=== PATIENT | female | born 1970 | race Caucasian/White ===

== ENCOUNTER → 2016-05-05 | Outpatient (CLI) | payer BC, OTHER ==
[2016-01-21 08:48] VITALS: BP 121/78
[~2016-05-05] MED LIST: ACET325T21 PO; ALPR0.5T PO; CELE200C PO; CONTRAST GIVEN MC PRN; DULO30CA43 PO; DULO60CA6 PO; ESTR0.5T PO; FURO-69 PO; FURO20TA3 PO; GUAI5LIQ PO; HYDR-2666 PO; HYDR-963 PO; HYDR1TAB12 PO; IOHEXOL 240 MG/ML 50ML VIAL. PO ONE; IOHEXOL 300 MG/ML 75 ML VIAL IV ONE; LIRA0.6P SQ; METF10002 PO; METH-37 PO; MOME13HF IH; NAPR500T PO; OMEG500C3 PO; OMEP20CA5 PO; OXYC-250 PO; OXYC-323 PO; PHEN-318 PO; PROAIR HFA8.5 GM INH; PROG200C7 PO; THYR30TA PO; [UNRECOGNIZED DRUG - CODE] PO
[2016-05-05 09:14] LABS: CREATININE 0.6 mg/dL (0.6-1.0); GFR 109.1
--- NOTE | 2016-05-05 10:59 | RAD ---
EXAM: CT abdomen/pelvis with contrast. HISTORY: Right upper quadrant pain. TECHNIQUE: Computed tomography of the abdomen and pelvis was performed after the intravenous administration of 75 mL Omnipaque 300. COMPARISON: 01/02/2016. FINDINGS: Lung windows through the visualized portions of the bases reveal mild atelectasis. Bone windows reveal no suspicious lesions. A 1 cm mildly hypoattenuating focus within the left hepatic lobe on image 15 was not clearly seen previously. This may be a region of focal fatty infiltration but this is unclear. The gallbladder is surgically absent. The pancreas, adrenal glands, spleen and kidneys are unremarkable. There are no pathologically enlarged lymph nodes. The appendix is not inflamed. There is no obstruction. There are surgical clips along the left adnexa. Soft tissues a within the subcutaneous fat of the lower anterior abdominal wall may reflect subcutaneous injections. IMPRESSION: 1. A focus of mild hypoattenuation within the left hepatic lobe was not seen previously. This is most likely a region of mild focal fatty infiltration. MRI can further characterize if there is persistent concern. A benign lesion is strongly favored in the absence of known malignancy. 2. Status post cholecystectomy. No biliary dilatation. *One or more of the following individualized dose reduction techniques were utilized for this examination: 1. Automated exposure control. 2. Adjustment of the mA and/or kV according to patient size. 3. Use of iterative reconstruction technique.
== END | disposition home or self-care (01) ==
LOC: CT 08:47
PROVIDERS: ATTEND Surgery
DX: R10.9 Unspecified abdominal pain (principal)
CPT/HCPCS: 36415; 74177; 82565; Q9966; Q9967

== ENCOUNTER → 2016-06-02 | Outpatient (CLI) | payer BC, OTHER ==
[2016-01-21 08:48] VITALS: BP 121/78
[~2016-06-02] MED LIST changes: +BUPIVACAINE MPF 0.25% 10 ML VIAL. ONE; -CONTRAST GIVEN MC PRN; -IOHEXOL 240 MG/ML 50ML VIAL. PO ONE; -IOHEXOL 300 MG/ML 75 ML VIAL IV ONE; +methylPREDNISolone ACETATE 40 MG/ML VIAL. ONE
--- NOTE | 2016-06-03 02:00 | PAIN ---
DATE OF SERVICE: 06/02/2016 INITIAL CONSULTATION FOR PAIN CLINIC CHIEF COMPLAINT: Left lower quadrant abdominal pain. HISTORY OF PRESENT ILLNESS: This is a 45-year-old female who presents with history of pain in the left lower quadrant after an emergency strangulated hernia repair by her report in 11/2015. The patient had an abrupt occurrence of left lower abdomen or inguinal hernia, which was strangulated with loop of bowel and had resection and repair later that day in 11/2015. The patient reports that since that time, pain was initially better, but now has been getting worse, especially since 04/2016. It hurts to the touch in left lower quadrant and groin. The patient reports the pain was never completely gone, but it was much better after the surgery. The patient reports she is on her feet all her working day, this exacerbates the pain significantly as well as standing and changing positions from standing to sitting and walking and feels better with lying down. It does not awaken her from sleep, but gets much worse with constipation. The patient reports pain in the left lower quadrant, also radiating to the groin into the left medial thigh up in the very superior aspect on the left side only. is very bad. The patient reports it is throbbing, sharp, constant, aching. She has tried ibuprofen as well as Tylenol, neither one is helping very much with the pain, has not had any other therapies or any other treatments at this time. The patient reports disability rate from 0-10, 10 being the worst, 6 with family and home responsibilities, social activity, and occupation as well life support activities, 8 with recreation and sexual behavior and 5 with self-care. PAST MEDICAL HISTORY: Significant for hypertension, type 2 diabetes, hypothyroidism, arthritis, dizziness and headaches. PREVIOUS SURGERY: Includes laparoscopic cholecystectomy, hysterectomy, tonsillectomy and the recent hernia repair in 11/2015. Also, history of asthma. CURRENT MEDICATIONS: Documented on the patient's chart. FAMILY HISTORY: Significant for heart disease, diabetes, cancers lung and stomach, seizure and asthma. 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 REVIEW OF SYSTEMS: The patient's review of systems is positive for those items mentioned in history of present illness. All systems reviewed and otherwise negative. It is complete, full and well documented on the patient's chart. PHYSICAL EXAMINATION: VITAL SIGNS: Today, the patient's blood pressure 128/88, pulse 90, respirations 18, temperature 98.2 degrees Fahrenheit, height is 5 feet 3 inches, weight 196 pounds. GENERAL: The patient is awake, alert, oriented, appropriate, very pleasant demeanor. HEENT: Head shows normocephalic, atraumatic. Extraocular movements are intact and symmetrical. Oral cavity shows mucous membranes moist and pink. Dentition is intact. NECK: Shows anterior throat supple without palpable lymphadenopathy noted. Swallow reflex is symmetrical. Neck shows full rotational motion of the cervical spine without difficulty or tenderness. CHEST: Shows normal on inspection. Breath sounds are clear to auscultation bilaterally. HEART: Shows S1 and S2 clear. No murmurs auscultated. ABDOMEN: Soft, well-healed surgical scars noted just left of midline in the hypogastric region below the umbilicus in a sagittal fashion. There is moderate tenderness with palpation in the lower left quadrant of the abdomen not or near the surgical scar, but to the left of this in the low abdominal region as well as into the groin with significant pain over the inguinal region, but the superior aspect of the inguinal region on the left side. There is easily palpable mesh, which is more firm in this region of lower left quadrant and upper left groin region as well. Right side is nontender to palpation. Bowel sounds are present in all 4 quadrants. No rebound is demonstrated. No specific guarding demonstrated. The patient's back shows spine grossly in the midline. Normal appearing thoracic kyphosis and lumbar lordotic curvature. Lumbar paraspinous musculature shows symmetrical inspection. On palpation, actually has some moderate tenderness in the low lumbar distribution bilaterally, which is diffuse without radiation. IMPRESSION: 1. This is a 45-year-old female with left lower quadrant and inguinal pain, status post left-sided hernia repair in 11/2015 with significant postoperative pain. 2. Type 2 diabetes. 3. Hypertension. 4. Arthritis. PLAN: Options were discussed with the patient including conservative medical management, physical therapy, interventional techniques and she would like to pursue interventional techniques. We discussed a left-sided ilioinguinal nerve block to see if this may afford some relief to the area of pain after the hernia repair. The patient is interested and would like to proceed with this. Risks were then discussed including, but not limited to bleeding, infection, possibility of intravascular injection sequelae, spread of local anesthetic and numbness, side effects of steroid medication as well as poor results regarding pain control. The patient understands and wishes to proceed. The patient will return to clinic in approximately 2 weeks for followup, was counseled on return appointment, activity level and side effects to be aware of. DIAGNOSES: Abdominal pain, left lower quadrant post-herniorrhaphy. PROCEDURE: Left ilioinguinal nerve block using local anesthetic under sterile prep and drape. Medication injected is total of 5 mL 0.25% bupivacaine plus 40 mg Depo-Medrol with negative aspiration. CONDITION AT DISCHARGE: Stable. The patient tolerated the procedure well, had no complications. BRANDY WESTBROOK MD DR: PEARL/olegario JOB#: [id number] / [id number]
== END | disposition home or self-care (01) ==
LOC: PNCL 10:54
PROVIDERS: ATTEND Anesthesiology
DX: G89.18 Other acute postprocedural pain (principal); E11.9 Type 2 diabetes mellitus without complications; I10 Essential (primary) hypertension; M19.90 Unspecified osteoarthritis, unspecified site; E03.9 Hypothyroidism, unspecified; J45.909 Unspecified asthma, uncomplicated; F41.9 Anxiety disorder, unspecified; Z90.49 Acquired absence of other specified parts of digestive tract; Z90.710 Acquired absence of both cervix and uterus; Z72.89 Other problems related to lifestyle
CPT/HCPCS: 64425; J1030; J3490

== ENCOUNTER → 2016-06-16 | Outpatient (CLI) | payer BC, OTHER ==
[2016-01-21 08:48] VITALS: BP 121/78
[~2016-06-16] MED LIST changes: -BUPIVACAINE MPF 0.25% 10 ML VIAL. ONE; +BUPIVACAINE MPF 0.5% 30 ML VIAL. ONE; +LISI10TA2 PO
--- NOTE | 2016-06-17 00:23 | PAIN ---
DATE OF SERVICE: 06/16/2016 PROGRESS NOTE FOR PAIN CLINIC DIAGNOSES: Abdominal left lower quadrant pain, status post herniorrhaphy pain. HISTORY OF PRESENT ILLNESS: The patient is a 45-year-old female who returns for followup status post left ilioinguinal nerve block on 06/02/2016. The patient reports about 50% improvement with pain in the left groin and left lower quadrant of the abdomen. The patient still has some significant pain though, however, with walking, standing and changing positions. It is aching, sharp and dull, is becoming more constant since the injection. The patient reports anywhere from a 5-7 on a scale 10, currently a 5, again worse with being on her feet, walking, standing, changing positions. The patient reports no new motor or sensory deficits, no new changes, but still significant pain is noted. PHYSICAL EXAMINATION: VITAL SIGNS: The patient's blood pressure 121/90, pulse is 103, respirations 18, temperature 98.5 degrees Fahrenheit. Height is 5 feet 3 inches, weight is 193 pounds. GENERAL: The patient is awake, alert, oriented, appropriate, very pleasant demeanor. HEENT: Head shows normocephalic, atraumatic. Extraocular movements are intact, symmetrical. Oral cavity, mucous membranes are moist and pink. Dentition is intact. NECK: Shows anterior throat supple. Swallow reflex is symmetrical. Neck shows full rotational motion of the cervical spine without difficulty or tenderness. CHEST: Shows normal on inspection. Breath sounds are clear to auscultation bilaterally. HEART: Shows S1 and S2 clear. No murmurs auscultated. ABDOMEN: Shows obese, but soft, with some tenderness in the left lower quadrant inferiorly on the lateral aspect of the hypoumbilical surgical scar in the midline with some palpable area of probable mesh suturing with significant tenderness in the left lower quadrant area. Also, some tenderness in the left groin, with deep palpation some radiation into the medial thigh on the left side. No recurrent hernias were palpated. No other masses or other rebound or guarding demonstrated. Options were discussed with the patient and the patient's old chart was reviewed as her current medication regimen updated. Current review of systems updated today as well. We will proceed with a left ilioinguinal nerve block as the second in this series. Risks were again discussed including, but not limited to bleeding, infection, possibility of intravascular injection sequelae, spread of local anesthetic and numbness, side effects of steroid medications and poor results regarding pain control. The patient understands and wishes to proceed. The patient will return to clinic in approximately 2 weeks for followup, was counseled on return appointment, activity level, and side effects to be aware of. DIAGNOSIS: Left lower quadrant abdominal pain, post-herniorrhaphy. PROCEDURE: Left ilioinguinal nerve block using local anesthetic under sterile prep and drape. Medication injected is a total of 40 mg of Depo-Medrol plus 5 mL of 0.5% bupivacaine after negative aspiration. CONDITION AT DISCHARGE: Stable. The patient tolerated the procedure well, had no complications. BRANDY WESTBROOK MD DR: PEARL/olegario JOB#: [id number] / [id number]
== END | disposition home or self-care (01) ==
LOC: PNCL 09:45
PROVIDERS: ATTEND Anesthesiology
DX: G89.18 Other acute postprocedural pain (principal); J45.909 Unspecified asthma, uncomplicated; E66.9 Obesity, unspecified; M19.90 Unspecified osteoarthritis, unspecified site; E11.9 Type 2 diabetes mellitus without complications; E03.9 Hypothyroidism, unspecified; F41.9 Anxiety disorder, unspecified; Z90.49 Acquired absence of other specified parts of digestive tract; Z90.710 Acquired absence of both cervix and uterus; Z98.51 Tubal ligation status
CPT/HCPCS: 64425; J1030; J3490

== ENCOUNTER → 2016-06-30 | Outpatient (CLI) | payer BC ==
[2016-01-21 08:48] VITALS: BP 121/78
[~2016-06-30] MED LIST changes: +METF-620 PO; -METF10002 PO
--- NOTE | 2016-07-01 00:24 | PAIN ---
DATE OF SERVICE: 06/30/2016 DIAGNOSES: Abdominal pain with left lower quadrant pain post herniorrhaphy. HISTORY OF PRESENT ILLNESS: The patient is a 45-year-old female who returns for followup status post left ilioinguinal nerve block x 2. The patient reports about 30% improvement overall and feels that the first injection helped better than the second injection. The patient reports no new motor or sensory deficits; however, rather complains of still significant pain in the left lower quadrant and in the left lower abdomen and somewhat close to the incisional area of the previous hernia repair. The patient reports anywhere from a 5-9 on a scale of 10, aching, sharp, constant pain that sometimes is unbearable to touch over the left lower quadrant as well. The patient reports no new motor or sensory deficits, no new bowel or bladder incontinence or other complaints. PHYSICAL EXAMINATION: VITAL SIGNS: Today, the patient's blood pressure is 108/71, pulse 94, respirations are 16, temperature 98.3 degrees Fahrenheit, weight is 194 pounds. GENERAL: The patient is awake, alert, oriented, appropriate, very pleasant demeanor. HEENT: Shows normocephalic, atraumatic. Extraocular movements are intact, symmetrical. Oral cavity, mucous membranes are moist and pink. Dentition is intact. NECK: Shows anterior throat supple without palpable lymphadenopathy noted. Swallow reflex is symmetrical. CHEST: Shows normal on inspection. Breath sounds clear to auscultation bilaterally. HEART: Shows S1 and S2 clear. No murmurs auscultated. ABDOMEN: Obese, soft, nontender, nondistended. BACK: Shows well-healed surgical scars in the ____ umbilical region in the midline. With palpation in the left lower quadrant and the inguinal region, there is some moderate tenderness with palpation, even to light touch over the skin of the left lower quadrant and extending medially to the hypogastric region on the left side only. No reproduction of pain is elicited with palpation over the anterior superior iliac spine or just inferior medial to this without radiation. Options were discussed with the patient and the patient's old chart was reviewed as her current medication regimen updated. Current review of systems updated to date as well. We will proceed with a third in a series of left ilioinguinal nerve block. Risks were again discussed including, but not limited to bleeding, infection, possibility of intravascular injection sequelae, spread of local anesthetic and numbness, side effects of steroid medication as well as poor results regarding pain control. The patient understands and wishes to proceed. The patient will return to clinic in approximately 2 weeks for followup. She was counseled on return appointment, activity level and side effects to be aware of. DIAGNOSIS: Left lower quadrant abdominal pain post-herniorrhaphy pain. PROCEDURES: Left ilioinguinal nerve block using local anesthetic under sterile prep and drape. MEDICATION INJECTED: Is a total of 40 mg of Depo-Medrol plus total of 5 mL of 0.5% bupivacaine after negative aspiration. CONDITION AT DISCHARGE: Stable. The patient tolerated procedure well, had no complications. BRANDY WESTBROOK MD DR: PEARL/nts JOB#: [id number] / [id number]
== END | disposition home or self-care (01) ==
LOC: PNCL 09:38
PROVIDERS: ATTEND Anesthesiology
DX: G89.18 Other acute postprocedural pain (principal); J45.909 Unspecified asthma, uncomplicated; E66.9 Obesity, unspecified; F41.9 Anxiety disorder, unspecified; E11.9 Type 2 diabetes mellitus without complications; E03.9 Hypothyroidism, unspecified; M19.90 Unspecified osteoarthritis, unspecified site; Z90.49 Acquired absence of other specified parts of digestive tract; Z98.51 Tubal ligation status; Z90.710 Acquired absence of both cervix and uterus; Z90.721 Acquired absence of ovaries, unilateral
CPT/HCPCS: 64425; J1030; J3490

== ENCOUNTER → 2016-08-11 | Outpatient (CLI) | payer BC ==
[2016-01-21 08:48] VITALS: BP 121/78
[~2016-08-11] MED LIST changes: -HYDR-2666 PO; +HYDR-2758 PO; +HYDR-2934 PO; -OXYC-250 PO; +OXYC-328 PO; +PROG200C15 PO; -PROG200C7 PO; -[UNRECOGNIZED DRUG - CODE] PO
--- NOTE | 2016-08-12 05:32 | PAIN ---
DATE OF SERVICE: 08/11/2016 PROGRESS NOTE FOR PAIN CLINIC DIAGNOSIS: Left lower quadrant abdominal pain, post-herniorrhaphy. HISTORY OF PRESENT ILLNESS: The patient is a 45-year-old female who returns for followup status post left ilioinguinal nerve block injections x 3. The patient reports she was doing better about 40-50%, but with increased activity over the past week, lifting some boxes rather heavy and strained her abdomen, the patient reports at that time the pain returned fairly quickly within a day in the left lower quadrant and the medial aspect of the left lower quadrant, ____. The patient reports it is constant and stabbing, now aching and sharp, rates as 9 on a scale of 10 and is worse with activity, and a 5 on a scale 10 currently. The patient reports it wakes her from sleep at night when she lays on her left side. Otherwise, was doing fairly well, but the pain is returning significantly. The patient is taking ibuprofen, which does decrease the pain now to about a 20% level as well. The patient reports no new motor or sensory deficits, no new bowel or bladder incontinence or other complaints. PHYSICAL EXAMINATION: VITAL SIGNS: Today, the patient's blood pressure is 122/89, pulse 90, respirations are 18, temperature is 98.3 degrees Fahrenheit, height is 5 feet 3 inches and weight is 195 pounds. GENERAL: The patient is awake, alert, oriented, appropriate, very pleasant demeanor. HEENT: Head shows normocephalic, atraumatic. Extraocular movements are intact and symmetrical. Oral cavity, mucous membranes are moist and pink. Dentition is intact. NECK: Shows anterior throat supple without palpable lymphadenopathy noted. Swallow reflex is symmetrical. CHEST: Shows normal on inspection. Breath sounds are clear to auscultation bilaterally. HEART: Shows S1 and S2 clear. ABDOMEN: Soft. She has some tenderness in the left lower quadrant with diffuse palpation near the surgical scar closer to the midline, but also into the left medial lower quadrant as well as lateral lower quadrant diffusely without radiation of pain or other abnormalities. No masses are palpated. No organomegaly, no rebound or guarding demonstrated. Options were discussed with the patient and the patient's old chart was reviewed as her current medication regimen and updated. Current review of systems updated today as well. We will proceed with a left ilioinguinal nerve block. Risks were again discussed including, but not limited to bleeding, infection, possibility of intravascular injection sequelae, spread of local anesthetic and numbness, side effects of steroid medication and poor results regarding pain control. The patient understands and wishes to proceed. The patient will return to clinic in approximately 2 weeks for followup. She was counseled as to return appointment, activity level and side effects to be aware of. DIAGNOSIS: Left lower quadrant abdominal pain, post-herniorrhaphy pain. PROCEDURE: Left ilioinguinal nerve block using local anesthetic under sterile prep and drape. MEDICATIONS INJECTED: Total of 5 mL of 0.5% bupivacaine and 40 mg of Depo-Medrol after negative aspiration. CONDITION AT DISCHARGE: Stable. The patient tolerated the procedure well, had no complications. BRANDY WESTBROOK MD DR: PEARL/olegario JOB#: [id number] / [id number]
== END | disposition home or self-care (01) ==
LOC: PNCL 14:09
PROVIDERS: ATTEND Anesthesiology
DX: G89.18 Other acute postprocedural pain (principal); J45.909 Unspecified asthma, uncomplicated; E66.9 Obesity, unspecified; M19.90 Unspecified osteoarthritis, unspecified site; E11.9 Type 2 diabetes mellitus without complications; F41.9 Anxiety disorder, unspecified; E03.9 Hypothyroidism, unspecified; Z90.49 Acquired absence of other specified parts of digestive tract; Z98.51 Tubal ligation status; Z86.39 Personal history of other endocrine, nutritional and metabolic disease; Z90.710 Acquired absence of both cervix and uterus; Z91.012 Allergy to eggs; Z91.011 Allergy to milk products; Z91.018 Allergy to other foods; Z91.048 Other nonmedicinal substance allergy status
CPT/HCPCS: 64425; J1030; J3490

== ENCOUNTER → 2016-08-19 | Outpatient (CLI) | payer BC ==
[2016-01-21 08:48] VITALS: BP 121/78
[~2016-08-19] MED LIST changes: -BUPIVACAINE MPF 0.5% 30 ML VIAL. ONE; +GADOBUTROL 10 MMOL/10 ML VIAL IV ONE; -methylPREDNISolone ACETATE 40 MG/ML VIAL. ONE
--- NOTE | 2016-08-19 13:40 | KCIC ---
MRI Lumbar Spine without and with contrast History: Chronic neck and back pain, low back pain for 4 years Technique: Multiplanar, multi sequential pre-and postcontrast MR imaging was performed of the lumbar spine. Contrast: 8 cc Gadavist Comparison: None Findings: Lumbar vertebral body stature and alignment are maintained. There is moderate degenerative disease at L2-3 and to a lesser degree L5-S1. Conus terminates at T12-L1. There is no nodular enhancement of the conus or cauda equina, no enhancement in the intervertebral disc spaces. There are posterior and anterior annular tears at L5-S1 and posterior annular tear at L2-3. There is no significant marrow edema. L2-L3: There is minimal disc osteophyte complex and bulge. There is mild prominence of posterior epidural fat. Spinal canal and the neural foramina are adequate. L3-L4: There is prominence of the posterior epidural fat. There is mild buckling of the ligamentum flavum and [id number] facet hypertrophic change. There is mild attenuation of the thecal sac mostly from posterior epidural lipomatosis. Neural foramina are adequate. L4-L5: There is mild prominence of posterior epidural fat. There is mild buckling of the ligamentum flavum and facet degenerative change. There is overall mild attenuation of the thecal sac primary from epidural lipomatosis. Neural foramina are adequate. L5-S1: There is mild buckling of the ligamentum flavum and [id number] facet hypertrophic change. Neural foramina and spinal canal are adequate. There is negligible posterior protrusion without neural impingement. Impression: 1. There is moderate degenerative disc disease L2-3 and to lesser degree L5-S1. There is no significant lumbar spinal stenosis, mild attenuation of the thecal sac due to epidural lipomatosis greatest at L3-4 and L4-5. There is no significant lumbar neural foramina compromise. Electronically signed by: Edwin Lawrence MD (08/19/2016 1:37 PM)
--- NOTE | 2016-08-19 14:05 | KCIC ---
MRI Cervical Spine with and without contrast History: Chronic neck and back pain, headaches, neck and shoulder pain for 3 weeks into the arms Technique: Sagittal T1, sagittal T2, sagittal STIR, axial T1, and axial T2-weighted images were acquired of the cervical spine. Post contrast sagittal and axial T1-weighted images were also acquired. Contrast: 8 cc Gadavist Comparison: None available Findings: There is some motion degradation. Cervical cord caliber is within normal limits, no convincing or defined signal abnormality allowing for motion artifact. There is no enhancement of the cervical cord and in the intervertebral disc spaces. There is mild reversal of the lordotic curvature centered about C5-6. There is moderate degenerative disc disease C5-C6 and to a lesser degree at C4-5 and C6-7. There is minimal grade 1 anterior spondylolisthesis C2-3 and to lesser degree at C3-4. There is no significant abnormality of the cervical medullary junction. C2-C3: Spinal canal and neural foramina are adequate. There is mild right facet hypertrophic change. C3-C4: There is a negligible disc osteophyte complex. There is mild right and moderate to severe left facet degenerative change. Spinal canal is adequate. There is minimal narrowing of the right neural foramen, left neural foramen adequate. C4-C5: There is minimal disc osteophyte complex and bulge. Central canal is borderline 10 mm. There is uncovertebral degenerative change. There is mild facet degenerative change greater on the left. Neural foramina are overall adequate. C5-C6: There is disc osteophyte complex and bulge with indentation upon the ventral thecal sac greater in the right lateral recess. Central canal is narrowed to 8 mm, somewhat greater degree of right lateral recess stenosis. There is uncovertebral degenerative change bilaterally, also facet degenerative change. There is moderate to severe, left greater than right neural foramina compromise. C6-C7: There is disc osteophyte complex and bulge with indentation upon the ventral thecal sac, central canal minimally narrowed to approximately 8 mm. There is uncovertebral degenerative change bilaterally. There is moderate to severe, left greater than right neural foramina compromise. C7-T1: Spinal canal and the neural foramina are adequate. Impression: 1. There is spinal stenosis on the order of 8 mm at C5-C6 and C6-7. 2. There is more significant narrowing of the neural foramina bilaterally at C5-C6 and C6-7. 3. There is moderate degenerative disc disease at C5-C6, talus. C4-5 and C6-7. 4. There is multilevel facet degenerative change. Electronically signed by: Edwin Lawrence MD (08/19/2016 2:02 PM)
== END | disposition home or self-care (01) ==
LOC: KCIC MRI 11:30
PROVIDERS: ATTEND Family Medicine
DX: M50.322 Other cervical disc degeneration at C5-C6 level (principal); M48.02 Spinal stenosis, cervical region; M25.78 Osteophyte, vertebrae
CPT/HCPCS: 72156; 72158; 82565; A9585

== ENCOUNTER → 2016-08-25 | Outpatient (CLI) | payer BC ==
[2016-01-21 08:48] VITALS: BP 121/78
[~2016-08-25] MED LIST changes: -GADOBUTROL 10 MMOL/10 ML VIAL IV ONE; +IOHEXOL 180 MG/ML 10 ML VIAL. ONE; +methylPREDNISolone ACETATE 40 MG/ML VIAL. ONE; +methylPREDNISolone ACETATE 80 MG/ML VIAL. ONE
== END | disposition home or self-care (01) ==
LOC: PNCL 12:56
PROVIDERS: ATTEND Anesthesiology
DX: M50.30 Other cervical disc degeneration, unspecified cervical region (principal); Z90.49 Acquired absence of other specified parts of digestive tract; E66.9 Obesity, unspecified; Z68.41 Body mass index [BMI] 40.0-44.9, adult; K21.9 Gastro-esophageal reflux disease without esophagitis; Z98.51 Tubal ligation status; M19.90 Unspecified osteoarthritis, unspecified site; Z87.39 Personal history of other diseases of the musculoskeletal system and connective tissue; F41.9 Anxiety disorder, unspecified; Z90.710 Acquired absence of both cervix and uterus; E11.9 Type 2 diabetes mellitus without complications; Z86.39 Personal history of other endocrine, nutritional and metabolic disease
CPT/HCPCS: 62321; J1030; J1040

== ENCOUNTER → 2016-09-08 | Outpatient (CLI) | payer BC ==
[2016-01-21 08:48] VITALS: BP 121/78
== END | disposition home or self-care (01) ==
LOC: PNCL 13:30
PROVIDERS: ATTEND Anesthesiology
DX: M50.11 Cervical disc disorder with radiculopathy, high cervical region (principal); J45.909 Unspecified asthma, uncomplicated; E66.9 Obesity, unspecified; Z68.41 Body mass index [BMI] 40.0-44.9, adult; K21.9 Gastro-esophageal reflux disease without esophagitis; M19.90 Unspecified osteoarthritis, unspecified site; E11.9 Type 2 diabetes mellitus without complications; E03.9 Hypothyroidism, unspecified; F41.9 Anxiety disorder, unspecified; Z90.49 Acquired absence of other specified parts of digestive tract; Z98.51 Tubal ligation status; Z90.710 Acquired absence of both cervix and uterus; Z91.012 Allergy to eggs; Z91.011 Allergy to milk products; Z91.048 Other nonmedicinal substance allergy status
CPT/HCPCS: 62321; J1030; J1040

== ENCOUNTER → 2016-09-22 | Outpatient (CLI) | payer BC ==
[2016-01-21 08:48] VITALS: BP 121/78
--- NOTE | 2016-09-23 06:45 | PAIN ---
DATE OF SERVICE: 09/22/2016 PROGRESS NOTE FOR PAIN CLINIC DIAGNOSES: 1. Abdominal pain, left lower quadrant, post herniorrhaphy. 2. Cervical radiculopathy with cervical degenerative disk disease. 3. Lumbar radiculopathy with lumbar degenerative disk disease. HISTORY OF PRESENT ILLNESS: The patient is a 45-year-old female who returns for followup status post cervical epidural steroid injection x 2 as well as left ilioinguinal nerve block x 4. The patient reports that her abdomen is doing much better about 75-80% improvement. Neck is about 50% improved. It is ____ pain in the base of the neck and left shoulder, also some persistent radiating pain in the left upper extremity, mostly in the posterior lateral aspect and medial aspect of the forearm and upper arm into the hand and fingers, mostly in the fourth and fifth fingers on the left side. It is a throbbing, constant, sharp pain, rates as a shooting, stabbing, radiating severe at times, unbearable at times, anywhere from 6 to 9 on a scale of 10 and is currently a 6 on the scale today. The patient reports no loss of motor function, but significant pain with still moving her arm overhead, doing repetitive motions with left upper extremity, lifting or other activities with the upper extremity. The patient reports also some low back pain with some radiation to bilateral lower extremities, which is not as severe as the neck and shoulders, but still significant pain in the base of the spine and then into the posterior lateral gluteus, lateral and anterior thighs, again worse with walking, standing and changing positions. This awakens her from sleep at night, mostly from the neck and shoulder and the left arm. She has to reposition or take pain medication and then she is able to get back to sleep. PHYSICAL EXAMINATION: VITAL SIGNS: Today, the patient's blood pressure is 128/98, pulse 105, respirations 18, temperature 98.0 degrees Fahrenheit. Height is 5 feet 3 inches, weighs 186 pounds. GENERAL: The patient is awake, alert, oriented, appropriate, very pleasant demeanor. HEENT: Head shows normocephalic, atraumatic. Extraocular movements are intact, symmetrical. Oral cavity: Mucous membranes moist and pink. Dentition is intact. NECK: Shows anterior throat supple without palpable lymphadenopathy noted. Swallow reflex is symmetrical. CHEST: Shows normal with inspection. Breath sounds clear to auscultation bilaterally. HEART: Shows S1 and S2 clear. ABDOMEN: Soft, nontender, nondistended. No palpable organomegaly is noted. There is a well healed surgical scar noted in the midline and to the left of midline in the lower left quadrant. Some very mild tenderness with palpation over this region and over the ilioinguinal distribution, but only very mildly so without radiation. BACK: The patient's back shows spine grossly midline. Cervical spine shows full rotational motion with extension and flexion without significant difficulty. Paraspinous musculature is symmetrical on inspection and palpation shows some only very mild to minimal tenderness with palpation in the paraspinous musculature itself. Good extension and flexion as well. Lower back shows moderate tenderness with palpation, but symmetrical paraspinous musculature in the lumbar distribution without significant radiation or pain reported with palpation only very mild in the paraspinous muscles. EXTREMITIES: Upper extremities show deep tendon reflexes at 2+ in the biceps and triceps tendons. Lower extremities show 2+ in the patellar and tendo calcaneus tendons. Motor exam is strong with 5/5 heading maker strength, biceps and triceps flexion equal as well as quadriceps and hamstring flexion and dorsiflexion, extension is 5/5 and equal as well. Peripheral pulses are 2+ radial, 1+ posterior tibial and no edema is noted in any of the extremities. Options were discussed with the patient. At this time, the patient's old chart was reviewed as her current medication regimen updated. Current review of systems updated today as well. We will proceed with a third cervical epidural steroid injection in this series with fluoroscopic guidance. Risks were again discussed including, but not limited to bleeding, infection, possibility of epidural hematoma and subsequent neurologic compromise, dural puncture, headaches, spinal cord and/or nerve damage, side effects of steroid medication and poor results regarding pain control. The patient understands and wishes to proceed. The patient will return to clinic in approximately 2 weeks for followup, was counseled on return appointment, activity level and side effects to be aware of. DIAGNOSIS: Cervical radiculopathy with cervical degenerative disk disease. PROCEDURE: Cervical epidural steroid injection with C-arm fluoroscopic guidance and sterile prep and drape using local anesthetic. MEDICATION INJECTED: 120 mg of Depo-Medrol plus 5 mL of preservative-free normal saline and 2mL of Isovue for contrast. CONDITION AT DISCHARGE: Stable. The patient tolerated the procedure well and had no complications. BRANDY WESTBROOK MD DR: PEARL/olegario JOB#: [id number] / [id number]
== END | disposition home or self-care (01) ==
LOC: PNCL 11:42
PROVIDERS: ATTEND Anesthesiology
DX: M50.10 Cervical disc disorder with radiculopathy, unspecified cervical region (principal); M51.16 Intervertebral disc disorders with radiculopathy, lumbar region; J45.909 Unspecified asthma, uncomplicated; E66.9 Obesity, unspecified; Z68.41 Body mass index [BMI] 40.0-44.9, adult; K21.9 Gastro-esophageal reflux disease without esophagitis; M19.90 Unspecified osteoarthritis, unspecified site; E11.9 Type 2 diabetes mellitus without complications; E03.9 Hypothyroidism, unspecified; F41.9 Anxiety disorder, unspecified; F17.200 Nicotine dependence, unspecified, uncomplicated; Z90.49 Acquired absence of other specified parts of digestive tract; Z86.39 Personal history of other endocrine, nutritional and metabolic disease; Z90.710 Acquired absence of both cervix and uterus; Z98.51 Tubal ligation status; Z91.012 Allergy to eggs; Z91.011 Allergy to milk products; Z91.010 Allergy to peanuts
CPT/HCPCS: 62321; J1030; J1040

== ENCOUNTER 2016-10-08 14:22 | Emergency (ER) | payer BC ==
[~2016-10-08] VITALS: Ht 160 cm; Wt 80.7 kg
[~2016-10-08 14:22] MED LIST changes: -IOHEXOL 180 MG/ML 10 ML VIAL. ONE; -methylPREDNISolone ACETATE 40 MG/ML VIAL. ONE; -methylPREDNISolone ACETATE 80 MG/ML VIAL. ONE
[2016-10-08 14:49] VITALS: BP 120/81
--- NOTE | 2016-10-08 14:57 | PHYS DOC ---
Past Medical History Past Medical History: Arthritis, Asthma, Diabetes-Type II Additional Past Medical Histor: back pain Past Surgical History: Cholecystectomy, Hysterectomy, Tonsillectomy, Other Additional Past Surgical Histo: BLADDER Alcohol Use: Occasionally Drug Use: None Adult General Chief Complaint Chief Complaint: ANIMAL BITE [facility] HPI Patient is a 45 year old female presents to the emergency department stating that she was bit by her own dog on Wednesday. She has a puncture wound noted in between her third and fourth metacarpal area. Patient does have bruising noted and no swelling noted at this time. Patient has increased discomfort with closing her hand. She denies any fever, chills or any nausea vomiting. She states that the dog's immunizations and herself are up-to-date. Review of Systems Review of Systems Constitutional: Denies fever or chills [] Eyes: Denies change in visual acuity, redness, or eye pain [] HENT: Denies nasal congestion or sore throat [] Respiratory: Denies cough or shortness of breath [] Cardiovascular: No additional information not addressed in HPI [] GI: Denies abdominal pain, nausea, vomiting, bloody stools or diarrhea [] : Denies dysuria or hematuria [] Musculoskeletal: Denies back pain or joint pain [] Integument: Denies rash or skin lesions. Complaint of one puncture wound to the left hand. Neurologic: Denies headache, focal weakness or sensory changes [] Endocrine: Denies polyuria or polydipsia [] Allergies Allergies Allergies Coded Allergies Type Severity Reaction Last Updated Verified Egg Derived Allergy Intermediate Hives 01/21/16 Yes adhesive Allergy Intermediate TAPE 01/21/16 Yes gluten Allergy Intermediate 01/21/16 Yes milk Adverse Reaction Intermediate 06/30/16 Yes Physical Exam Physical Exam Constitutional: Well developed, well nourished, no acute distress, non-toxic appearance. [] HENT: Normocephalic, atraumatic, bilateral external ears normal, oropharynx moist, no oral exudates, nose normal. [] Eyes: PERRLA, EOMI, conjunctiva normal, no discharge. [] Neck: Normal range of motion, no tenderness, supple, no stridor. [] Cardiovascular:Heart rate regular rhythm Lungs & Thorax: No respiratory distress noted Skin: Warm, dry, no erythema, no rash. Patient with a puncture wound noted between the third and fourth metacarpal area on the left hand. She does have bruising noted minimal swelling noted. 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 Patient does have tenderness over the metacarpal areas. Back: No tenderness Extremities: No tenderness, no cyanosis, no clubbing, ROM intact, no edema. [] Neurologic: Alert and oriented X 3, normal motor function, normal sensory function, no focal deficits noted. [] Psychologic: Affect normal, judgement normal, mood normal. [] Current Patient Data Vital Signs Vital Signs Date Time Temp Pulse Resp B/P (MAP) Pulse Ox O2 Delivery O2 Flow Rate FiO2 10/08/16 14:49 98.2 105 20 97 Room Air 98.2 EKG EKG [] Radiology/Procedures Radiology/Procedures [facility] [address] [place] [address] IMAGING REPORT Signed PATIENT: YARED RICHARD ACCOUNT: [id number] : 1970 LOCATION: ER AGE: 45 SEX: F EXAM STATUS: REG ER ORD. PHYSICIAN: JO-ANN GRIMALDO APRN REASON: pain, bruising from dog bite PROCEDURE: HAND LEFT 3V Indication dog bite 3 days previously persistent pain. AP oblique and lateral views of the left hand were obtained. There is some soft tissue swelling involving the long and ring fingers. There is an oblique fracture at the base of the distal phalanx of the long finger on the ulnar side which is nondisplaced. The fracture is likely recent or acute. IMPRESSION: Mild soft tissue swelling. Nondisplaced fracture distal phalanx of the long finger DICTATED and SIGNED BY: WICHO MANZANO MD DATE: 10/08/16 1523 CC: JO-ANN GRIMALDO APRN; JOSE NAVARRETE MD ~ [] Course & Med Decision Making Course & Med Decision Making Pertinent Labs and Imaging studies reviewed. (See chart for details) X-ray revealed a nondisplaced fracture at the distal phalanx on the third finger , patient will be placed with a aluminum splint. Patient was also handing tenderness at the proximal metacarpal area on the third finger. Patient will be encouraged to follow-up with hand specialist at or at [facility]. Patient will be placed on Augmentin prophylactically as the hand does not appear to be swollen and tender to touch. Patient agrees with discharge instructions treatment regimens and follow-up recommendations. Signs and symptoms to return back to emergency department as been provided. All questions were answered at patient's bedside at this time. [] Dragon Disclaimer Dragon Disclaimer This electronic medical record was generated, in whole or in part, using a voice recognition dictation system. Departure Departure Impression: Primary Impression: Dog bite of left hand Additional Impression: Hand pain, left Disposition: 01 HOME, SELF-CARE Condition: STABLE Referrals: JOSE NAVARRETE MD (PCP) Patient Instructions: Animal Bite, [id number], Hand Injuries, [id number] Additional Instructions: Activity as tolerated. Medications as prescribed. Tylenol or ibuprofen for pain and discomfort. Elevation as much as possible. Keep the puncture wound clean and dry. Clean the site twice over soap and water and apply antibiotic ointment to the area. Follow-up with a hand specialist either at [facility] within the next 3-5 days. Return to the emergency Department for sign symptoms become worse. Scripts Amoxicillin/Potassium Clav (AUGMENTIN 875-125 TABLET) 1 Each Tablet 1 TAB PO BID, #20 TAB Prov: JO-ANN GRIMALDO APRN 10/08/16 Problem Qualifiers JO-ANN GRIMALDO APRN Oct 08, 2016 14:57
--- NOTE | 2016-10-08 15:29 | RAD ---
Indication dog bite 3 days previously persistent pain. AP oblique and lateral views of the left hand were obtained. There is some soft tissue swelling involving the long and ring fingers. There is an oblique fracture at the base of the distal phalanx of the long finger on the ulnar side which is nondisplaced. The fracture is likely recent or acute. IMPRESSION: Mild soft tissue swelling. Nondisplaced fracture distal phalanx of the long finger
[2016-10-08] MEDS ORDERED: AMOX1TAB61 PO (15:53)
== END 2016-10-08 16:00 | disposition home or self-care (01) ==
LOC: ER 14:22
DX: S61.452A Open bite of left hand, initial encounter (principal); M19.90 Unspecified osteoarthritis, unspecified site; J45.909 Unspecified asthma, uncomplicated; E11.9 Type 2 diabetes mellitus without complications; Z90.49 Acquired absence of other specified parts of digestive tract; Z90.710 Acquired absence of both cervix and uterus; Z91.012 Allergy to eggs; Z91.011 Allergy to milk products; Z88.8 Allergy status to other drugs, medicaments and biological substances; Z91.048 Other nonmedicinal substance allergy status; W54.0XXA Bitten by dog, initial encounter; Y93.89 Activity, other specified; Y92.89 Other specified places as the place of occurrence of the external cause; Y99.8 Other external cause status
CPT/HCPCS: 29130; 73130; 99284-25

== ENCOUNTER → 2016-11-16 | Outpatient (CLI) | payer BC ==
[~2016-11-16] MED LIST changes: +AMOX1TAB61 PO
--- NOTE | 2016-11-17 09:06 | KCIC ---
DATE: 11/16/2016 EXAM: MAMMO HUSEYIN SCREENING BILATERAL HISTORY: Screening COMPARISON: One year earlier FINDINGS: Breast Density: HETERO The breast parenchyma Is heterogeneiously dense, which could reduce sensitivity of mammography. Breast parenchyma level C. There has not been a significant change in the appearance of the breasts compared to the previous exam IMPRESSION: Benign findings BI-RADS CATEGORY: 2 BENIGN FINDING(S) RECOMMENDED FOLLOW-UP: 12M 12 MONTH FOLLOW-UP PQRS compliance statement: Patient information was entered into a reminder system with a target due date 11/16/2017 for the next mammogram. Mammography is a sensitive method for finding small breast cancers, but it does not detect them all and is not a substitute for careful clinical examination. A negative mammogram does not negate a clinically suspicious finding and should not result in delay in biopsying a clinically suspicious abnormality. "Our facility is accredited by the [employer] Mammography Program."
== END | disposition home or self-care (01) ==
LOC: KCIC MAMMO 15:46
PROVIDERS: ATTEND Family Medicine
DX: Z12.31 Encounter for screening mammogram for malignant neoplasm of breast (principal)
CPT/HCPCS: 77063; G0202; 77067

== ENCOUNTER 2016-12-07 11:37 | Emergency (ER) | payer BC ==
[2016-12-07 11:50] VITALS: BP 136/93
--- NOTE | 2016-12-07 12:28 | PHYS DOC ---
Past Medical History Past Medical History: Arthritis, Asthma, Diabetes-Type II Additional Past Medical Histor: back pain Past Surgical History: Cholecystectomy, Hysterectomy, Tonsillectomy, Other Additional Past Surgical Histo: BLADDER Alcohol Use: Occasionally Drug Use: None Adult General Chief Complaint Chief Complaint: PAIN CONTROL HPI HPI Patient is a 46 year old female with history of asthma, diabetes type 2, complaining of chronic neck pain. Patient denies any new injuries. Patient states she follows up with Dr. Scott for her chronic neck pain. She states she is scheduled for myelogram on December 27, 2016. She states she called the office today to see if they can do it sooner but they could not get any dates sooner than December 27 2016. She states she came to the ED to be evaluated for her pain. Patient states the pain radiates to bilateral upper extremities. She states Dr. Scott has an RX for her to pick for pain medicine Review of Systems Review of Systems Constitutional: Denies fever or chills [] Eyes: Denies change in visual acuity, redness, or eye pain [] HENT: Denies nasal congestion or sore throat [] Respiratory: Denies cough or shortness of breath [] Cardiovascular: No additional information not addressed in HPI [] GI: Denies abdominal pain, nausea, vomiting, bloody stools or diarrhea [] : Denies dysuria or hematuria [] Musculoskeletal: Chronic neck pain radiating to bilateral upper extremities Integument: Denies rash or skin lesions [] Neurologic: Denies headache, focal weakness or sensory changes [] Current Medications Current Medications Current Medications Medications (Trade) Dose Ordered Sig/[facility] Start Time Stop Time Status Last Admin Dose Admin Diazepam (Valium) 5 mg 1X ONCE 12/07/16 12:30 12/07/16 12:31 Ketorolac Tromethamine (Toradol Im) 60 mg 1X ONCE 12/07/16 12:30 12/07/16 12:31 Morphine Sulfate 5 mg 1X ONCE 12/07/16 12:30 12/07/16 12:31 Allergies Allergies Allergies Coded Allergies Type Severity Reaction Last Updated Verified Egg Derived Allergy Intermediate Hives 01/21/16 Yes adhesive Allergy Intermediate TAPE 01/21/16 Yes gluten Allergy Intermediate 01/21/16 Yes milk Adverse Reaction Intermediate 06/30/16 Yes Physical Exam Physical Exam Constitutional: Well developed, well nourished, no acute distress, non-toxic appearance. [] HENT: Normocephalic, atraumatic, bilateral external ears normal, oropharynx moist, no oral exudates, nose normal. [] Eyes: PERRLA, EOMI, conjunctiva normal, no discharge. [] Neck: Normal range of motion, diffuse paraspinal muscle tenderness to posterior cervical spine, supple, no stridor. [] Cardiovascular:Heart rate regular rhythm, no murmur [] Lungs & Thorax: Bilateral breath sounds clear to auscultation [] Abdomen: Bowel sounds normal, soft, no tenderness, no masses, no pulsatile masses. [] Skin: Warm, dry, no erythema, no rash. [] Back: No tenderness, no CVA tenderness. [] Extremities: No tenderness, no cyanosis, no clubbing, ROM intact, no edema. [] Neurologic: Alert and oriented X 3, normal motor function, normal sensory function, no focal deficits noted. [] Psychologic: Affect normal, judgement normal, mood normal. [] Current Patient Data Vital Signs Vital Signs Date Time Temp Pulse Resp B/P (MAP) Pulse Ox O2 Delivery O2 Flow Rate FiO2 12/07/16 11:50 98.4 98 18 97 Room Air 98.4 EKG EKG [] Radiology/Procedures Radiology/Procedures [] Course & Med Decision Making Course & Med Decision Making Pertinent Labs and Imaging studies reviewed. (See chart for details) Please see history of present illness. Patient is in the ED with chronic neck pain. She is scheduled to do a myelogram on December 27, [address] Scott. She is wanting this done sooner than the date scheduled. Informed patient we do not do myelograms in the ED. She was given pain relief and discharged. She has a prescription for pain medicine at Dr. Scott's office. Dragon Disclaimer Dragon Disclaimer This electronic medical record was generated, in whole or in part, using a voice recognition dictation system. Departure Departure Impression: Primary Impression: Chronic neck pain Additional Impression: Cervical radiculopathy Disposition: 01 HOME, SELF-CARE Condition: STABLE Referrals: JOSE NAVARRETE MD (PCP) ASHIA CSOTT MD call his office for follow up appointment Patient Instructions: Cervical Radiculopathy, [id number] Additional Instructions: You were seen for chronic neck pain radiating to bilateral upper extremities. Please contact your own primary care doctor as well as Dr. Scott for follow- up. Problem Qualifiers CYNTHIA LOVELACE APRN Dec 07, 2016 12:28
[2016-12-07] MEDS ORDERED: MORPHINE SULFATE 10 MG/ML VIAL. IM ONE (12:30)
[2016-12-07] MEDS ORDERED: KETOROLAC 60 MG/2 ML INJ. IM ONE (12:30)
[2016-12-07] MEDS ORDERED: diazePAM 5 MG TABLET PO ONE (12:30)
[2016-12-11] MEDS ORDERED: IBUP-1007 PO (10:11)
[2016-12-11] MEDS ORDERED: [UNRECOGNIZED DRUG - CODE] PO (10:11)
[2016-12-11] MEDS ORDERED: BUPR300T3 PO (10:11)
[2016-12-11] MEDS ORDERED: LEVO150T5 PO (10:11)
[2016-12-11] MEDS ORDERED: DULA0.75 SQ (10:11)
[2016-12-11] MEDS ORDERED: ESTR2TAB PO (10:11)
[2016-12-11] MEDS ORDERED: HYDR-2758 PO (10:11)
[2016-12-11] MEDS ORDERED: OMEP20CA9 PO (10:11)
[2016-12-11] MEDS ORDERED: CHLO500T53 PO (10:13)
[2016-12-11] MEDS ORDERED: METH-37 PO (10:13)
== END 2016-12-07 13:08 | disposition home or self-care (01) ==
LOC: ER 11:37
DX: G89.29 Other chronic pain (principal); M54.12 Radiculopathy, cervical region; M19.90 Unspecified osteoarthritis, unspecified site; J45.909 Unspecified asthma, uncomplicated; E11.9 Type 2 diabetes mellitus without complications; Z90.49 Acquired absence of other specified parts of digestive tract; Z90.710 Acquired absence of both cervix and uterus; Z91.012 Allergy to eggs; Z91.011 Allergy to milk products; Z88.8 Allergy status to other drugs, medicaments and biological substances; Z91.048 Other nonmedicinal substance allergy status
CPT/HCPCS: 96372; 99284; J1885; J2270

== ENCOUNTER → 2016-12-11 | Outpatient (CLI) | payer BC ==
[~2016-12-11] VITALS: Ht 160 cm; Wt 85.7 kg
[~2016-12-11] MED LIST changes: +BUPR300T3 PO; +CHLO500T53 PO; +CONTRAST GIVEN MC PRN; +DULA0.75 SQ; +ESTR2TAB PO; +IBUP-1007 PO; +IOHEXOL 300 MG/ML 10ML VIAL. IJ ONE; +LEVO150T5 PO; +LIDOCAINE 1% / SOD BICARB 8.4% 20 ML VIAL. IJ ONE; +OMEP20CA9 PO; +[UNRECOGNIZED DRUG - CODE] PO
--- NOTE | 2016-12-11 12:02 | RAD ---
Cervical myelogram, 12/11/2016: History: Cervical stenosis-radiculopathy Under local anesthesia, aseptic conditions and fluoroscopic guidance a lumbar puncture was performed at the L2 level utilizing a 25-gauge Debbi spinal needle. Good clear CSF flow was obtained following which 11 cc of Omnipaque 300 was injected into the thecal sac. The spinal needle was then removed and appropriate cervical imaging performed. 2.6 minutes of fluoroscopy time was utilized. 11 fluoroscopic spot images were recorded. The patient tolerated the procedure well and was sent to CT in good condition. The following findings are delineated on the myelogram: 1. In the prone position with the neck extended there was partial obstruction to superior flow of the contrast material at the C5-6 level. 2. There are anterior extradural defects throughout the cervical spine, most prominent at C5-6 and to lesser degree at C4-5 and C6-7. There are also posterior extradural defects at C5-6 and C6-7, producing mild central spinal stenosis at those 2 levels levels. 3. There is poor filling of the nerve root sleeves bilaterally C5-6 and C6-7. CT of the cervical spine-post myelogram, 12/11/2016: Multidetector CT imaging was performed with multiplanar reconstructions produced. The following findings are delineated: 1. At C2-3 there is only minimal posterior annular bulging. There are mild degenerative changes involving the facet joints. The central spinal canal and neural foramina are well preserved. 2. At C3-4 there is minimal posterior annular bulging and mild degenerative change involving the facet joints. The central spinal canal is well-preserved. There is decreased filling of the left nerve root sleeve at this level. 4. At C4-5 there is moderate broad-based posterior disc bulging and marginal spurring. There are mild degenerative changes involving the facet joints. The thecal sac measures 10 mm in AP dimension at the midline. The neural foramina are well maintained. 5. At C5-6 there is moderate disc space narrowing with prominent anterior and posterior spurs. The thecal sac narrows down to an AP diameter of 7-8 mm at the midline. Spurring is causing severe right foraminal stenosis and moderate left foraminal stenosis at this level. 6. At C6-7 there is mild to moderate posterior marginal spurring, more so on the left. There is moderate posterior disc bulging at the midline. The combination of findings narrows the thecal sac down to an AP diameter 7-8 mm at the midline. There is moderate bilateral foraminal encroachment. 7. At C7-T1 there is no significant posterior disc bulge or protrusion. The central spinal canal and neural foramina are well maintained. IMPRESSION: 1. Moderate multilevel degenerative change as described above. 2. Mild to moderate associated central spinal stenosis at C5-6 and C6-7 with associated bilateral foraminal encroachment, most severe at C5-6.
[2016-12-11 13:53] VITALS: BP 120/76
== END | disposition home or self-care (01) ==
LOC: RAD 09:20
PROVIDERS: ATTEND Neurological Surgery
DX: M48.02 Spinal stenosis, cervical region (principal); M54.12 Radiculopathy, cervical region; M47.892 Other spondylosis, cervical region
CPT/HCPCS: 72126; 72240; Q9967

== ENCOUNTER → 2016-12-28 | Outpatient (CLI) | payer BC ==
[2016-12-11 13:53] VITALS: BP 120/76
[~2016-12-28] MED LIST changes: -CONTRAST GIVEN MC PRN; +CYCL10TA2 PO; +DOCU-109 PO; +HYDR-2766 PO; -IOHEXOL 300 MG/ML 10ML VIAL. IJ ONE; -LIDOCAINE 1% / SOD BICARB 8.4% 20 ML VIAL. IJ ONE; +LINA290C PO
[2016-12-28 16:23] LABS: BASO % 1 % (0-3); EOS % 2 % (0-3); HEMOGLOBIN 13.5 g/dL (12.0-15.5); LYMPH # 1.7 x10^3/uL (1.0-4.8); LYMPH % 27 % (24-48); MEAN CORPUSCULAR HEMOGLOBIN 33 pg (25-35); MEAN CORPUSCULAR HGB CONC 34 g/dL (31-37); MEAN CORPUSCULAR VOLUME 97 fL (79-100); MONO % 5 % (0-9); NEUT % 65 % (31-73); PLATELET COUNT 372 x10^3/uL (140-400); RED BLOOD COUNT 4.11 x10^6/uL (3.50-5.40); RED CELL DISTRIBUTION WIDTH 12.3 % (11.5-14.5); WHITE BLOOD COUNT 6.2 x10^3/uL (4.0-11.0)
[2016-12-28 16:41] LABS: ALBUMIN 4.2 g/dL (3.4-5.0); ALBUMIN/GLOBULIN RATIO 1.4 (1.0-1.7); CALCIUM 9.2 mg/dL (8.5-10.1); CREATININE 0.6 mg/dL (0.6-1.0); GFR 108.6; POTASSIUM 3.8 mmol/L (3.5-5.1); TOTAL BILIRUBIN 0.5 mg/dL (0.2-1.0); TOTAL PROTEIN 7.1 g/dL (6.4-8.2)
== END | disposition home or self-care (01) ==
LOC: SURGPAT 13:37
PROVIDERS: ATTEND Neurological Surgery
DX: M54.12 Radiculopathy, cervical region (principal)
CPT/HCPCS: 36415; 80053; 83036; 85025; 87641

== ENCOUNTER → 2017-01-18 | Outpatient (CLI) | payer BC ==
[2017-01-01 15:00] VITALS: BP 106/70
--- NOTE | 2017-01-18 15:07 | KCIC ---
History: Postoperative anterior cervical fusion 2 weeks earlier. Comparison: CT myelogram December 11, 2016. Findings: AP and lateral views of the cervical spine. There has been interval ACDF from C5 through C7. No hardware complication is identified. There is straightening of the normal cervical lordosis, similar to previous study. Multilevel facet and uncovertebral hypertrophy is seen. Impression: ACDF changes from C5 through C7. Electronically signed by: Lewis Ortega MD (01/18/2017 3:03 PM) [place] [id number]
== END | disposition home or self-care (01) ==
LOC: KCIC 14:04
PROVIDERS: ATTEND Neurological Surgery
DX: Z01.818 Encounter for other preprocedural examination (principal); M40.292 Other kyphosis, cervical region; Z98.890 Other specified postprocedural states
CPT/HCPCS: 72040

== ENCOUNTER → 2017-03-31 | Outpatient (CLI) | payer BC | END | disposition home or self-care (01) | LOC: KCIC 15:12 | DX: M48.02 Spinal stenosis, cervical region (principal); M47.892 Other spondylosis, cervical region; M12.88 Other specific arthropathies, not elsewhere classified, other specified site; Z98.1 Arthrodesis status | CPT/HCPCS: 72040 ==

== ENCOUNTER → 2017-05-10 | Outpatient (CLI) | payer BC | END | disposition home or self-care (01) | LOC: KCIC 15:25 | DX: M43.22 Fusion of spine, cervical region (principal); Z98.890 Other specified postprocedural states | CPT/HCPCS: 72040 ==

== ENCOUNTER → 2017-07-12 | Outpatient (CLI) | payer BC ==
[~2017-07-12] MED LIST changes: -ACET325T21 PO; -ALPR0.5T PO; -AMOX1TAB61 PO; -BUPR300T3 PO; -CELE200C PO; -CHLO500T53 PO; -CYCL10TA2 PO; -DOCU-109 PO; -DULA0.75 SQ; -DULO30CA43 PO; -DULO60CA6 PO; -ESTR0.5T PO; -ESTR2TAB PO; -FURO-69 PO; -FURO20TA3 PO; -GUAI5LIQ PO; -HYDR-2758 PO; -HYDR-2766 PO; -HYDR-2934 PO; -HYDR-963 PO; -HYDR1TAB12 PO; -IBUP-1007 PO; +IOHEXOL 180 MG/ML 10 ML VIAL.; -LEVO150T5 PO; -LINA290C PO; -LIRA0.6P SQ; -LISI10TA2 PO; -METF-620 PO; -METH-37 PO; -MOME13HF IH; -NAPR500T PO; -OMEG500C3 PO; -OMEP20CA5 PO; -OMEP20CA9 PO; -OXYC-323 PO; -OXYC-328 PO; -PHEN-318 PO; -PROAIR HFA8.5 GM INH; -PROG200C15 PO; -THYR30TA PO; -[UNRECOGNIZED DRUG - CODE] PO; +methylPREDNISolone ACETATE 40 MG/ML VIAL.; +methylPREDNISolone ACETATE 80 MG/ML VIAL.
== END | disposition home or self-care (01) ==
LOC: PNCL 13:10
DX: M50.123 Cervical disc disorder at C6-C7 level with radiculopathy (principal); M51.16 Intervertebral disc disorders with radiculopathy, lumbar region; M96.1 Postlaminectomy syndrome, not elsewhere classified; I10 Essential (primary) hypertension; J45.909 Unspecified asthma, uncomplicated; Z90.49 Acquired absence of other specified parts of digestive tract; E66.9 Obesity, unspecified; K21.9 Gastro-esophageal reflux disease without esophagitis; Z98.51 Tubal ligation status; E11.9 Type 2 diabetes mellitus without complications; E03.9 Hypothyroidism, unspecified; F41.9 Anxiety disorder, unspecified; Z90.710 Acquired absence of both cervix and uterus; Z90.721 Acquired absence of ovaries, unilateral; Z98.890 Other specified postprocedural states; Z90.79 Acquired absence of other genital organ(s); M47.896 Other spondylosis, lumbar region; Z79.84 Long term (current) use of oral hypoglycemic drugs; F17.200 Nicotine dependence, unspecified, uncomplicated; Z83.3 Family history of diabetes mellitus; Z91.011 Allergy to milk products; Z91.018 Allergy to other foods
CPT/HCPCS: 62321; J1030; J1040; Q9965

== ENCOUNTER → 2017-07-27 | Outpatient (CLI) | payer BC ==
[~2017-07-27] MED LIST changes: +LIDOCAINE 1% PF 2 ML VIAL.
== END ==
LOC: PNCL 13:16
DX: M50.123 Cervical disc disorder at C6-C7 level with radiculopathy (principal); M96.1 Postlaminectomy syndrome, not elsewhere classified; M51.16 Intervertebral disc disorders with radiculopathy, lumbar region; Z98.890 Other specified postprocedural states; I10 Essential (primary) hypertension; J45.909 Unspecified asthma, uncomplicated; Z90.49 Acquired absence of other specified parts of digestive tract; K21.9 Gastro-esophageal reflux disease without esophagitis; Z98.51 Tubal ligation status; Z90.721 Acquired absence of ovaries, unilateral; M19.90 Unspecified osteoarthritis, unspecified site; E11.9 Type 2 diabetes mellitus without complications; Z79.84 Long term (current) use of oral hypoglycemic drugs; E03.9 Hypothyroidism, unspecified; F41.9 Anxiety disorder, unspecified; Z83.3 Family history of diabetes mellitus
CPT/HCPCS: 62321; J1030; J1040; Q9965

== ENCOUNTER → 2017-08-10 | Outpatient (CLI) | payer BC ==
[~2017-08-10] MED LIST changes: +BUPIVACAINE MPF 0.25% 10 ML VIAL.; -IOHEXOL 180 MG/ML 10 ML VIAL.; -LIDOCAINE 1% PF 2 ML VIAL.; -methylPREDNISolone ACETATE 80 MG/ML VIAL.
== END ==
LOC: PNCL 13:46
DX: M79.1 Myalgia (principal); M96.1 Postlaminectomy syndrome, not elsewhere classified; M50.123 Cervical disc disorder at C6-C7 level with radiculopathy; M51.16 Intervertebral disc disorders with radiculopathy, lumbar region; I10 Essential (primary) hypertension; K21.9 Gastro-esophageal reflux disease without esophagitis; E03.9 Hypothyroidism, unspecified; F41.9 Anxiety disorder, unspecified; E66.9 Obesity, unspecified; E11.9 Type 2 diabetes mellitus without complications; J45.909 Unspecified asthma, uncomplicated; F17.200 Nicotine dependence, unspecified, uncomplicated; M19.90 Unspecified osteoarthritis, unspecified site; Z79.899 Other long term (current) drug therapy; Z79.84 Long term (current) use of oral hypoglycemic drugs; Z91.011 Allergy to milk products; Z91.018 Allergy to other foods; Z90.710 Acquired absence of both cervix and uterus; Z90.79 Acquired absence of other genital organ(s); Z98.890 Other specified postprocedural states; Z98.51 Tubal ligation status; Z90.721 Acquired absence of ovaries, unilateral; Z83.3 Family history of diabetes mellitus
CPT/HCPCS: 20553; J1030; J3490

== ENCOUNTER → 2017-11-02 | Outpatient (CLI) | payer BC ==
[2017-01-01 15:00] VITALS: BP 106/70
[~2017-11-02] MED LIST changes: +ACET325T21 PO; +ALPR0.5T PO; +AMOX1TAB61 PO; -BUPIVACAINE MPF 0.25% 10 ML VIAL.; +BUPIVACAINE MPF 0.25% 10 ML VIAL. ONE; +BUPR300T3 PO; +CELE200C PO; +CHLO500T53 PO; +CYCL10TA2 PO; +DOCU-109 PO; +DULA0.75 SQ; +DULO30CA43 PO; +DULO60CA6 PO; +ESTR0.5T PO; +ESTR0.5T3 PO; +ESTR2TAB PO; +FAMO20TA5 PO; +FURO-69 PO; +FURO20TA3 PO; +GUAI5LIQ PO; +HYDR-2758 PO; +HYDR-2766 PO; +HYDR-2934 PO; +HYDR-963 PO; +HYDR1TAB12 PO; +IBUP-1007 PO; +IBUP-1060 PO; +LEVO150T5 PO; +LINA290C PO; +LIRA0.6P SQ; +LISI-338 PO; +LISI10TA2 PO; +METF10007 PO; +METH-37 PO; +MIRT15TA3 PO; +MOME13HF IH; +MONT10TA9 PO; +NAPR-683 PO; +OMEG500C3 PO; +OMEP20CA5 PO; +OMEP20CA9 PO; +OXYC-323 PO; +OXYC-328 PO; +PHEN-318 PO; +PROAIR HFA8.5 GM INH; +PROG200C15 PO; +QUET200T4 PO; +QUET50TA5 PO; +ROPI1TAB PO; +SUCR1TAB35 PO; +THYR30TA PO; +TRAZ300T2 PO; +[UNRECOGNIZED DRUG - CODE] PO; -methylPREDNISolone ACETATE 40 MG/ML VIAL.; +methylPREDNISolone ACETATE 40 MG/ML VIAL. ONE
--- NOTE | 2017-11-03 01:45 | PAIN ---
DATE OF SERVICE: 11/02/2017 PROGRESS NOTE FOR PAIN CLINIC DIAGNOSES: 1. Abdominal pain, left lower quadrant post-herniorrhaphy. 2. Cervical radiculopathy with cervical degenerative disk disease and post-lumbar laminectomy syndrome. 3. Lumbar radiculopathy with lumbar degenerative disk disease. 4. Myofascial pain. HISTORY OF PRESENT ILLNESS: The patient is a 46-year-old female who returns for followup status post trigger point injection as well as cervical epidural steroid injections and a left ilioinguinal nerve block. The patient did very well with nerve blocks, cervical epidural steroid injection. She did well with about 75% improvement after last injection in June of this year and trigger point injections with significant improvement as well of about 75% also. The patient returns today reporting that she is having increased pain and stiffness and tightness in the neck and shoulders bilaterally, somewhat worse on the right than the left but present bilaterally. The patient has had some significant depression symptoms this summer and has been hospitalized for these as well but is now doing better. The patient reports pain in the neck and shoulders is worse with weather changes. Does not awaken her from sleep at night, worse with doing activity using upper extremity, turning of her cervical spine, extension and flexion of the head as well. The patient reports the pain is a 9 on a scale of 10 at its worst, 6 on average, 5 at its least and is a 6 today. The patient reports it is cramping, stabbing, aching, tight, becoming more radiating, more constant and into the shoulders and arms to a degree but mostly in the neck and upper back and shoulders. The patient reports no new motor or sensory deficits and no bowel or bladder incontinence or other complaints. PHYSICAL EXAMINATION: VITAL SIGNS: The patient's blood pressure 138/99, pulse 99, respirations 18, temperature 97.6 degrees Fahrenheit. Height is 5 feet 3 inches and weight is 188 pounds. GENERAL: The patient is awake, alert, oriented, appropriate and very pleasant demeanor. HEENT: Head shows normocephalic and atraumatic. Extraocular movements intact and symmetrical. Oral cavity, mucous membranes are moist and pink. Dentition is intact. NECK: Shows anterior throat supple without palpable lymphadenopathy noted. Swallow reflex symmetrical. CHEST: Shows normal on inspection. Breath sounds clear to auscultation bilaterally. HEART: Shows S1 and S2 clear. No murmurs auscultated. ABDOMEN: Soft, nontender and nondistended. No palpable organomegaly is noted. No rebound or guarding demonstrated. BACK: Shows spine grossly in the midline, slight flattening of cervical lordotic curvature and slight exaggeration of the thoracic kyphotic curvature. Cervical paraspinous musculature shows symmetrical on inspection and palpation shows some very firm rope-like musculature throughout the upper, middle and lower distribution of the cervical paraspinous musculature, superior medial trapezius, especially on the left greater than the right with very firm rope-like musculature in all these areas consistent with trigger point areas of musculature without specific radiation, very tender with palpation thoracic paraspinous musculature, again more on the left than the right as well without radiation. Upper extremities show deep tendon reflexes 2+ in biceps and triceps tendons. 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 Peripheral pulses are 2+ radial distribution. No peripheral edema is noted. Options were discussed with the patient. The patient's old chart was reviewed as well as her current medication regimen updated. Current review of systems updated today as well. We will proceed with trigger point injections of the bilateral cervical paraspinous musculature, bilateral trapezius musculature, bilateral thoracic paraspinous musculature. Risks were discussed including but not limited to bleeding, infection, possibility of intravascular injection sequelae, spread of local anesthetic and numbness, pneumothorax, side effects of steroid medication and poor results regarding pain control. The patient understands and wished to proceed. The patient will return to the clinic in approximately 2 weeks for followup, was counseled as to return appointment, activity level and side effects to be aware of. DIAGNOSES: 1. Myofascial pain. 2. Cervical radiculopathy with cervical degenerative disk disease and post-cervical laminectomy syndrome. PROCEDURE: Trigger point injections, bilateral cervical paraspinous musculature, bilateral trapezius musculature, bilateral thoracic paraspinous musculature under sterile prep and drape using local anesthetic. MEDICATION INJECTED: A total of 40 mg of Depo-Medrol plus total of 12 mL of 0.25% bupivacaine after negative aspiration at each injection site. CONDITION AT DISCHARGE: Stable. The patient tolerated the procedure well and had no complications. BRANDY WESTBROOK MD DR: Juanita JOB#: [id number] / [id number]
== END | disposition home or self-care (01) ==
LOC: PNCL 13:32
PROVIDERS: ATTEND Anesthesiology
DX: M79.1 Myalgia (principal); M51.16 Intervertebral disc disorders with radiculopathy, lumbar region; M96.1 Postlaminectomy syndrome, not elsewhere classified; M50.10 Cervical disc disorder with radiculopathy, unspecified cervical region; Z98.890 Other specified postprocedural states; Z91.012 Allergy to eggs; Z91.011 Allergy to milk products; Z91.018 Allergy to other foods; Z91.048 Other nonmedicinal substance allergy status
CPT/HCPCS: 20553; J1030; J3490

== ENCOUNTER → 2017-11-15 | Outpatient (CLI) | payer BC ==
[2017-01-01 15:00] VITALS: BP 106/70
--- NOTE | 2017-11-15 18:37 | PAIN ---
DATE OF SERVICE: 11/15/2017 DIAGNOSES: 1. Myofascial pain. 2. Cervical radiculopathy with cervical degenerative disk disease and post-cervical laminectomy syndrome. HISTORY OF PRESENT ILLNESS: The patient is a 47-year-old female who returns for followup status post trigger point injections on 11/02/2017. The patient did very well, reports about a 50% improvement overall, then down to about a 40% improvement. She did very well until about the past 5 days ago. The pain began to return fairly significantly in the base of the neck and shoulders, more on the right than the left, but present bilaterally with stiffness and tightness becoming more painful, difficulty with sleeping at times, but not every night, usually worse with using upper extremities, rotational motion of the cervical spine causing some headaches posteriorly as well. The patient reports it is cramping, aching, tight, constant, becoming more severe. The patient reports it is an 8 on a scale of 10 at its worst, 6 on average and a 5 at its least and is a 5 today. The patient reports no loss of motor function, occasional radiation in the upper extremities, slightly more on the right as well. The patient reports she is using Biofreeze, applying heat as well. It is same, ability to return to work activities as well as household activities. The patient reports no new motor or sensory deficits or other complaints. PHYSICAL EXAMINATION: VITAL SIGNS: The patient's blood pressure is 115/83, pulse 107, respirations 18, temperature is 98.5 degrees Fahrenheit, weight is 186 pounds. GENERAL: The patient is awake, alert, oriented, appropriate, very pleasant demeanor. HEENT: Head shows normocephalic, atraumatic. Extraocular movements are intact and symmetrical. Oral cavity: Mucous membranes moist and pink. Dentition is intact. NECK: Shows anterior throat supple without palpable lymphadenopathy noted. Swallow reflex is symmetrical. CHEST: Shows normal with inspection. Breath sounds clear to auscultation bilaterally. HEART: Shows S1, S2 clear. No murmurs auscultated. ABDOMEN: Soft, nontender, nondistended. No palpable organomegaly is noted. No rebound or guarding demonstrated. BACK: Shows spine grossly in the midline. Normal appearing thoracic kyphosis and lumbar lordotic curvature. Cervical curvature shows a slight flattening in cervical lordosis, but only minimally. The patient's cervical paraspinous muscles so tender with palpation, very firm rope-like musculature throughout the superior and medial as well as inferior aspect of the cervical paraspinous muscles, slightly more on the right than the left, more tender without specific radiation. The patient has very firm rope-like musculature consistent with trigger point areas of musculature as on previous exams, not quite to the extent as on previous exam, but is similar. The patient's trapezius shows significant tenderness and trigger point rope-like musculature as is the superior aspect of the thoracic paraspinous musculature, again worse on the right than the left without radiation. The patient's neck shows good rotational motion of cervical spine, both laterally as well as extension and flexion with some minor tenderness with extension and also with forward flexion and far lateral rotation to the left with pain on the right side at the base of the neck. EXTREMITIES: The patient's upper extremities show deep tendon reflexes 2+ in the biceps and triceps tendons. Motor exam is strong with surgical first assistant strength rated at 5/5 as is bicep and tricep flexion. Peripheral pulses are 2+ radial distribution. No peripheral edema is noted bilaterally. Options were discussed with the patient. The patient's old chart was reviewed as her current medication regimen and updated. Current review of systems is updated today as well. We will proceed with trigger point injections of the bilateral trapezius, bilateral cervical paraspinous musculature and bilateral thoracic paraspinous musculature. Risks were again discussed including, but not limited to bleeding, infection, possibility of intravascular injection sequelae, spread of local anesthetic and numbness, side effects of steroid medication, pneumothorax as well as poor results regarding pain control. The patient understands and wished to proceed. The patient will return to the clinic in approximately 2 weeks for followup, was counseled on return appointment, activity level and side effects to be aware of. DIAGNOSES: 1. Myofascial pain. 2. Cervical radiculopathy with cervical degenerative disk disease, cervical post-laminectomy syndrome. PROCEDURE: Trigger point injections of bilateral cervical paraspinous muscles, bilateral trapezius musculature, bilateral thoracic paraspinous musculature under sterile prep and drape using local anesthetic. MEDICATION INJECTED: A total of 40 mg Depo-Medrol plus total of 11 mL of 0.25% bupivacaine after negative aspiration at each level. CONDITION AT DISCHARGE: Stable. The patient tolerated the procedure well, had no complications. BRANDY WESTBROOK MD DR: PEARL/olegario JOB#: [id number] / [id number]
== END | disposition home or self-care (01) ==
LOC: PNCL 13:25
PROVIDERS: ATTEND Anesthesiology
DX: M79.1 Myalgia (principal); M96.1 Postlaminectomy syndrome, not elsewhere classified; M50.10 Cervical disc disorder with radiculopathy, unspecified cervical region; Z91.012 Allergy to eggs; Z91.011 Allergy to milk products; Z91.018 Allergy to other foods; Z91.048 Other nonmedicinal substance allergy status
CPT/HCPCS: 20553; J1030; J3490

== ENCOUNTER → 2017-11-29 | Outpatient (CLI) | payer BC ==
[2017-01-01 15:00] VITALS: BP 106/70
[~2017-11-29] MED LIST changes: -BUPIVACAINE MPF 0.25% 10 ML VIAL. ONE; +IOHEXOL 180 MG/ML 10 ML VIAL. ONE; +LIDOCAINE 2% PF 2ML VIAL. ONE; +methylPREDNISolone ACETATE 80 MG/ML VIAL. ONE
--- NOTE | 2017-11-30 01:40 | PAIN ---
DATE OF SERVICE: 11/29/2017 PROGRESS NOTE FOR PAIN CLINIC DIAGNOSES: 1. Cervical radiculopathy with cervical degenerative disk disease and post-cervical laminectomy syndrome. 2. Lumbar radiculopathy with lumbar degenerative disk disease. 3. Myofascial pain. HISTORY OF PRESENT ILLNESS: The patient is a 47-year-old female who returns for followup status post trigger point injections of the cervical paraspinous musculature with trapezius and thoracic paraspinous muscles. The patient reports she did well, about a 50% improvement initially, but the pain is returning now more in the left arm and shoulder as well as the base of the neck. The patient reports it is radiating more into the upper arm and biceps and into the anterior forearm with some aching and sharpness in the neck itself becoming more constant with radiation to the arm on the left side greater than right. The patient reports it is a 7 on a scale of 10 at its worst, 5 on average, 4 at its least and is a 5 today. The patient reports no new motor or sensory deficits and no new changes but no significant pain, becoming more and more noticeable. PHYSICAL EXAMINATION: VITAL SIGNS: Shows blood pressure 121/86, pulse 90, respirations 18, temperature 98.2 degrees Fahrenheit, height is 5 feet 3 inches and weight is 190 pounds. GENERAL: The patient is awake, alert, oriented, appropriate and very pleasant demeanor. HEENT: Head shows normocephalic and atraumatic. Extraocular movements are intact and symmetrical. Oral cavity: Mucous membranes moist and pink. Dentition is intact. NECK: Shows anterior throat supple without palpable lymphadenopathy noted. Swallow reflex symmetrical. CHEST: Shows normal on inspection. Breath sounds clear to auscultation bilaterally. HEART: Shows S1 and S2 clear. No murmurs auscultated. ABDOMEN: Soft, nontender and nondistended. No palpable organomegaly is noted. No rebound or guarding demonstrated. BACK: Shows spine grossly in the midline. Cervical paraspinous muscle shows symmetrical on inspection and palpation shows some moderate tenderness diffusely bilaterally but without significant atrophy or hypertrophy. The patient does show tenderness with rotational motion, especially with extension of the cervical spine and far left lateral rotation but has performed past 45 degrees without significant difficulty or limitation. EXTREMITIES: Upper extremities show deep tendon reflexes at 2+ in the biceps and triceps tendons. 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 Peripheral pulses are 2+ radial distribution. No peripheral edema is noted bilaterally. Options were discussed with the patient. The patient's old chart was reviewed as well as her current medication regimen updated. Current review of systems updated today as well. We will proceed with a cervical epidural steroid injection today with fluoroscopic guidance. Risks were again discussed including, but not limited to bleeding, infection, possibility of epidural hematoma and subsequent neurological compromise, dural puncture, headaches, spinal cord and/or nerve damage, side effects of steroid medication and poor results regarding pain control. The patient understands and wished to proceed. The patient will return to the clinic in approximately 2 weeks for followup, was counseled as to return appointment, activity level and side effects to be aware of. DIAGNOSES: Cervical radiculopathy with cervical degenerative disk disease and post-cervical laminectomy syndrome. PROCEDURE: Cervical epidural steroid injection, translaminar approach at the C6-C7 level using C-arm fluoroscopic guidance under sterile prep and drape using local anesthetic. MEDICATION INJECTED: A total of 120 mg of Depo-Medrol plus 5 mL of preservative-free normal saline and 2 mL of Isovue for contrast. CONDITION AT DISCHARGE: Stable. The patient tolerated procedure well, had no complications. BRANDY WESTBROOK MD DR: PEARL/olegario JOB#: [id number] / [id number]
== END | disposition home or self-care (01) ==
LOC: PNCL 14:01
PROVIDERS: ATTEND Anesthesiology
DX: M50.123 Cervical disc disorder at C6-C7 level with radiculopathy (principal); M96.1 Postlaminectomy syndrome, not elsewhere classified; M51.16 Intervertebral disc disorders with radiculopathy, lumbar region; M79.18 Myalgia, other site; Z91.011 Allergy to milk products; Z91.018 Allergy to other foods; Z91.048 Other nonmedicinal substance allergy status
CPT/HCPCS: 62321; J1030; J1040; J2001; Q9965

== ENCOUNTER 2019-02-27 15:36 | Emergency (ER) | payer BC ==
[~2019-02-27] VITALS: Ht 160 cm; Wt 83.9 kg
[~2019-02-27 15:36] MED LIST changes: +ALBU2.5V8 INH; -DULO30CA43 PO; +DULO30CA44 PO; -HYDR-2758 PO; +HYDR-2761 PO; -HYDR-2766 PO; +HYDR-2769 PO; +HYDR-3135 PO; -HYDR-963 PO; -HYDR1TAB12 PO; +HYDR1TAB13 PO; -IOHEXOL 180 MG/ML 10 ML VIAL. ONE; -LIDOCAINE 2% PF 2ML VIAL. ONE; -LINA290C PO; +LINZESS290 MCG PO; +MONT10TA49 PO; -MONT10TA9 PO; +OMEP20CA16 PO; -OMEP20CA9 PO; -OXYC-323 PO; -OXYC-328 PO; +OXYC1TAB15 PO; +OXYC1TAB22 PO; -PROAIR HFA8.5 GM INH; -methylPREDNISolone ACETATE 40 MG/ML VIAL. ONE; -methylPREDNISolone ACETATE 80 MG/ML VIAL. ONE
[2019-02-27 19:30] LABS: BASO # 0.1 x10^3/uL (0.0-0.2); BASO % 1 % (0-3); EOS % 0 % (0-3); HEMATOCRIT 37.1 % (36.0-47.0); HEMOGLOBIN 12.8 g/dL (12.0-15.5); LYMPH # 1.2 x10^3/uL (1.0-4.8); LYMPH % 12 % (24-48); MEAN CORPUSCULAR HEMOGLOBIN 33 pg (25-35); MEAN CORPUSCULAR HGB CONC 35 g/dL (31-37); MEAN CORPUSCULAR VOLUME 94 fL (79-100); MONO # 0.1 x10^3/uL (0.0-1.1); MONO % 1 % (0-9); NEUT % 86 % (31-73); PLATELET COUNT 401 x10^3/uL (140-400); RED BLOOD COUNT 3.94 x10^6/uL (3.50-5.40); RED CELL DISTRIBUTION WIDTH 13.5 % (11.5-14.5); WHITE BLOOD COUNT 10.4 x10^3/uL (4.0-11.0)
[2019-02-27 19:41] LABS: CALCIUM 9.5 mg/dL (8.5-10.1); CREATININE 0.8 mg/dL (0.6-1.0); GFR 77.2; POTASSIUM 4.2 mmol/L (3.5-5.1)
[2019-02-27 19:46] LABS: ALBUMIN/GLOBULIN RATIO 0.9 (1.0-1.7); TOTAL BILIRUBIN 0.2 mg/dL (0.2-1.0); TOTAL PROTEIN 8.4 g/dL (6.4-8.2)
[2019-02-27 19:55] LABS: % LYMPHS 14 % (24-48); % SEGS 86 % (35-66); PLT ESTIMATE ADEQUATE (ADEQUATE); TOXIC GRANULATION SLIGHT
[2019-02-27] MEDS ORDERED: IOHEXOL 350 MG/ML 100 ML VIAL. IV ONE (21:45)
[2019-02-27] MEDS ORDERED: CONTRAST GIVEN. MC PRN (21:45)
--- NOTE | 2019-02-27 22:20 | RAD ---
CTA Chest with contrast: Clinical History: Chest pain and elevated d-dimer. Axial helical images of the chest were obtained after the administration of 90 cc of IV Omni 350 and timed appropriately for a pulmonary arterial study. Conventional axial reconstruction was performed in addition to coronal, sagittal and bilateral oblique MIP (maximum intensity projection). This study was ordered to detect possible pulmonary embolism. There are no filling defects to suggest pulmonary embolism. The lungs and pleural margins are clear. There is no mediastinal or hilar lymphadenopathy. The thoracic aorta appears normal. Impression: 1. No evidence of pulmonary embolism. 2. No significant findings. PQRS Compliance Statement: One or more of the following individualized dose reduction techniques were utilized for this examination: 1. Automated exposure control 2. Adjustment of the mA and/or kV according to patient size 3. Use of iterative reconstruction technique Electronically signed by: Abe Ayala III, MD (02/27/2019 10:17 PM) [facility]
--- NOTE | 2019-02-27 22:32 | RAD ---
Chest PA and lateral: Reason for examination: Leg swelling and chest pain with elevated d-dimer. The heart size is normal. Mediastinum is unremarkable. Lung quinones are clear. No acute bony abnormalities are seen. Impression: No acute cardiopulmonary disease. Right lower extremity venous doppler: The right lower extremity venous system was evaluated from the common femoral and greater saphenous veins distally to the calf veins with grayscale imaging, color-flow imaging and spectral analysis. There was a noncompressible 6 to 8 cm segment of 1 of the right posterior tibial veins distally which showed no bladder flow consistent with venous thrombosis. The remaining deep venous system shows normal blood flow and normal response to compression and augmentation. IMPRESSION: Venous thrombosis over a 6 to 8 cm length in 1 of the right posterior tibial veins distally. Electronically signed by: Mai Asif MD (02/27/2019 10:29 PM) [id number]
[2019-02-27] MEDS ORDERED: APIX5TAB PO (22:45)
--- NOTE | 2019-02-27 22:59 | PHYS DOC ---
Past Medical History Past Medical History: Arthritis, Asthma, Diabetes-Type II Additional Past Medical Histor: back pain Past Surgical History: Cholecystectomy, Hysterectomy, Tonsillectomy, Other Additional Past Surgical Histo: BLADDER Alcohol Use: Occasionally Drug Use: None Adult General Chief Complaint Chief Complaint: LOWER EXTREMITY SWELLING HPI HPI Patient is a 48 year old female with right lower medial leg swelling for several days and left shoulder pain reproduces with palpation and movement for the past several days. Patient was evaluated by her primary care right placed on steroids and antibiotics without improvement. Denies fevers chills, sweats. No nausea vomiting, sweats. Denies shortness of breath. Patient is a current smoker. No other acute symptoms or complaints. [] Review of Systems Review of Systems ROS as per HPI All other systems were reviewed and found to be within normal limits, except as documented in this note. Current Medications Current Medications Current Medications Medications (Trade) Dose Ordered Sig/Graciela Start Time Stop Time Status Last Admin Dose Admin Apixaban (Eliquis) 10 mg 1X ONCE 02/27/19 23:00 02/27/19 23:01 DC 02/27/19 23:12 10 MG Info (CONTRAST GIVEN -- Rx MONITORING) 1 each PRN DAILY PRN 02/27/19 21:45 02/27/19 23:40 DC Iohexol (Omnipaque 350 Mg/ml) 100 ml 1X ONCE 02/27/19 21:45 02/27/19 21:46 DC 02/27/19 21:41 100 ML Allergies Allergies Allergies Coded Allergies Type Severity Reaction Last Updated Verified Egg Derived Allergy Intermediate Hives 12/31/16 Yes adhesive Allergy Intermediate TAPE 12/31/16 Yes gluten Allergy Intermediate 12/31/16 Yes wheat dextrin Allergy Intermediate Hives 12/31/16 Yes milk Adverse Reaction Intermediate 12/31/16 Yes Physical Exam Physical Exam Constitutional: Well developed, well nourished, no acute distress, non-toxic appearance. [] HENT: Normocephalic, atraumatic, bilateral external ears normal, oropharynx moist, no oral exudates, nose normal. [] Eyes: PERRLA, EOMI, conjunctiva normal, no discharge. [] Neck: Normal range of motion, no tenderness, supple, no stridor. [] Cardiovascular:Heart rate regular rhythm, no murmur [] Lungs & Thorax: Bilateral breath sounds clear to auscultation [] Abdomen: Bowel sounds normal, soft, no tenderness. [] Skin: Warm, dry, no erythema, no rash. [] Back: No tenderness, older, trapezius muscle pain reproduces with palpation.. [] Extremities: No tenderness, palpable clot and posterior tibial vein. [] Neurologic: Alert and oriented X 3, normal motor function, normal sensory function, no focal deficits noted. [] Psychologic: Affect normal, judgement normal, mood normal. [] Current Patient Data Vital Signs Vital Signs Date Time Temp Pulse Resp B/P (MAP) Pulse Ox O2 Delivery O2 Flow Rate FiO2 02/27/19 23:04 92 21 124/84 (97) 95 Room Air 02/27/19 19:10 97.8 97.8 Lab Values Laboratory Tests Test 02/27/19 19:20 White Blood Count 10.4 x10^3/uL (4.0-11.0) Red Blood Count 3.94 x10^6/uL (3.50-5.40) Hemoglobin 12.8 g/dL (12.0-15.5) Hematocrit 37.1 % (36.0-47.0) Mean Corpuscular Volume 94 fL (79-100) Mean Corpuscular Hemoglobin 33 pg (25-35) Mean Corpuscular Hemoglobin Concent 35 g/dL (31-37) Red Cell Distribution Width 13.5 % (11.5-14.5) Platelet Count 401 x10^3/uL (140-400) H Neutrophils (%) (Auto) 86 % (31-73) H Lymphocytes (%) (Auto) 12 % (24-48) L Monocytes (%) (Auto) 1 % (0-9) Eosinophils (%) (Auto) 0 % (0-3) Basophils (%) (Auto) 1 % (0-3) Neutrophils # (Auto) 9.0 x10^3/uL (1.8-7.7) H Lymphocytes # (Auto) 1.2 x10^3/uL (1.0-4.8) Monocytes # (Auto) 0.1 x10^3/uL (0.0-1.1) Eosinophils # (Auto) 0.0 x10^3/uL (0.0-0.7) Basophils # (Auto) 0.1 x10^3/uL (0.0-0.2) Segmented Neutrophils % 86 % (35-66) H Lymphocytes % 14 % (24-48) L Toxic Granulation Slight Platelet Estimate Adequate (ADEQUATE) D-Dimer (Gladys) 1.36 ug/mlFEU (0.00-0.50) H Sodium Level 136 mmol/L (136-145) Potassium Level 4.2 mmol/L (3.5-5.1) Chloride Level 100 mmol/L (98-107) Carbon Dioxide Level 24 mmol/L (21-32) Anion Gap 12 (6-14) Blood Urea Nitrogen 10 mg/dL (7-20) Creatinine 0.8 mg/dL (0.6-1.0) Estimated GFR (Cockcroft-Gault) 77.2 BUN/Creatinine Ratio 13 (6-20) Glucose Level 120 mg/dL (70-99) H Calcium Level 9.5 mg/dL (8.5-10.1) Total Bilirubin 0.2 mg/dL (0.2-1.0) Aspartate Amino Transferase (AST) 18 U/L (15-37) Alanine Aminotransferase (ALT) 21 U/L (14-59) Alkaline Phosphatase 65 U/L (46-116) Total Protein 8.4 g/dL (6.4-8.2) H Albumin 4.0 g/dL (3.4-5.0) Albumin/Globulin Ratio 0.9 (1.0-1.7) L Laboratory Tests 02/27/19 19:20 Laboratory Tests 02/27/19 19:20 EKG EKG [EKG: reviewed] Radiology/Procedures Radiology/Procedures [CV ultrasound: Left posterior DVT noted] CT angio: No PE per radiology report. Course & Med Decision Making Course & Med Decision Making Pertinent Labs and Imaging studies reviewed. (See chart for details) [Patient hypodermically stable given the first dose on anticoagulation in the ED.] Dragon Disclaimer Dragon Disclaimer This electronic medical record was generated, in whole or in part, using a voice recognition dictation system. Departure Departure Impression: Primary Impression: Left shoulder pain Additional Impressions: DVT of axillary vein, acute right Right leg pain Disposition: 01 HOME, SELF-CARE Condition: STABLE Patient Instructions: Musculoskeletal Pain, Deep Vein Thrombosis Additional Instructions: Please fill Eliquis prescription and take as directed. Follow up with your PCP in 1 week for re-evaluation. Return to the ED if new or concerning symptoms. Scripts Apixaban (ELIQUIS) 5 Mg Tablet 5 MG PO BID for 30 Days, #60 TAB 2 pills by mouth twice daily week 1 1 pill mouth twice daily thereafter Prov: TEGAN MESA DO 02/27/19 Problem Qualifiers TEGAN MESA DO Feb 27, 2019 22:59
[2019-02-27] MEDS ORDERED: APIXABAN 5 MG TABLET. PO ONE (23:00)
[2019-02-27 23:04] VITALS: BP 124/84
== END 2019-02-27 23:15 | disposition home or self-care (01) ==
LOC: ER 15:36
DX: M25.512 Pain in left shoulder (principal); I82.A11 Acute embolism and thrombosis of right axillary vein; M79.604 Pain in right leg; M19.90 Unspecified osteoarthritis, unspecified site; J45.909 Unspecified asthma, uncomplicated; E11.9 Type 2 diabetes mellitus without complications; F17.200 Nicotine dependence, unspecified, uncomplicated; Z90.49 Acquired absence of other specified parts of digestive tract; Z90.89 Acquired absence of other organs; Z90.710 Acquired absence of both cervix and uterus; Z98.890 Other specified postprocedural states; Z91.018 Allergy to other foods; Z91.048 Other nonmedicinal substance allergy status; Z88.8 Allergy status to other drugs, medicaments and biological substances; Z91.011 Allergy to milk products
CPT/HCPCS: 36415; 71046; 71275; 80053; 85007; 85025; 85379; 93971; 99285; Q9967

== ENCOUNTER → 2019-04-19 | Outpatient (CLI) | payer BC ==
[~2019-04-19] MED LIST changes: +APIX5TAB PO
--- NOTE | 2019-04-19 14:25 | KCIC ---
EXAM: Chest, 2 views. HISTORY: Cough. COMPARISON: 02/27/2019 FINDINGS: 2 views of chest are obtained. There is no infiltrate, pleural effusion or pneumothorax. The heart is normal in size. There is cervical spinal fusion instrumentation. IMPRESSION: No acute pulmonary finding. Electronically signed by: Salome Devries MD (04/19/2019 2:23 PM) [facility]
== END | disposition home or self-care (01) ==
LOC: KCIC 13:30
PROVIDERS: ATTEND Nurse Practitioner
DX: R05 Cough (principal)
CPT/HCPCS: 71046

== ENCOUNTER → 2019-09-18 | Outpatient (CLI) | payer BC ==
--- NOTE | 2019-09-18 16:16 | RAD ---
EXAM: Bilateral lower extremity venous Doppler sonogram. HISTORY: DVT follow-up. TECHNIQUE: Mclean scale and color Doppler sonographic evaluation of the bilateral lower extremity veins with spectral waveform analysis was performed. FINDINGS: There is normal color flow, normal compressibility and there are normal spectral waveforms in the common femoral, superficial femoral, popliteal, posterior tibial and greater saphenous veins. The previously demonstrated right posterior tibial venous thrombosis is no longer seen. IMPRESSION: No Doppler evidence of lower extremity deep venous thrombosis. Electronically signed by: Salome Devries MD (09/18/2019 4:12 PM) [id number]
== END | disposition home or self-care (01) ==
LOC: US 15:17
PROVIDERS: ATTEND Family Medicine
DX: I82.493 Acute embolism and thrombosis of other specified deep vein of lower extremity, bilateral (principal)
CPT/HCPCS: 93970

== ENCOUNTER → 2019-10-11 | Outpatient (CLI) | payer BC ==
[~2019-10-11] MED LIST changes: +AZELASTINE; +BENZ200C47 PO; +BUDE0.25 IH; +BUDE10.2 IH; +IV NORMAL SALINE 250ML 250 ML IV ONE; +METO25TA4 PO; +NORT25CA PO; +ONDA4TAB7 PO; +PANT40TA77 PO; +REGADENOSON 0.4 MG/5 ML DISP.SYRIN. IV ONE; +TIOT18CA IH
--- NOTE | 2019-10-11 10:19 | NUR ---
Patient came in outpatient for cardiac stress test. Heart rate 60-80's with some dropped beats, lethargic and tired. Blood pressure 84/42, recheck 95/54. Patient also reports having labs drawn last week and iron and hbg being low. Dr Maddox's office called to verify labs, patient will scheduled appt with Dr. Maddox then return for cardiac stress test in 1 month. Cardiac stress test not completed today, Patient given Normal Saline 250ml bolus per Dr. Valentine. Patient educated and verbalized understanding.
--- NOTE | 2019-10-11 11:24 | RAD ---
MR#: [id number] Date of Study: 10/11/2019 Ordering Physician: PANCHITO KATZ, Referring Physician: LOGAN BRICENO Tech: ALISSA Haro ARRT (Javid) (N) APPROVED REPORT Imaging Protocol IMAGE PROTOCOL: REST ONLY Rest: Stress: Viability: Radiopharm.Tc99m Sestamibi Dose10.6mCi Img Date 10/11/2019 Inj-Img [id number]. Rest Admin Site:IV - Left AntecubitalAdministrator:ALISSA Haro ARRT (R)(N) LV Perf. Quant 17 Seg. SRS1.00 Stress Defect Extent (% LAD)Rest Defect Extent (% LAD)0.00Rev. Defect Extent (% LAD) Stress Defect Extent (% LCX) Rest Defect Extent (% LCX)0.00Rev. Defect Extent (% LCX) Stress Defect Extent (% RCA)Rest Defect Extent (% RCA)0.00Rev. Defect Extent (% RCA) Stress Defect Extent (% ADELE)Rest Defect Extent (% ADELE)0.00Rev. Defect Extent (% ADELE) Conclusion 1. This is a limited stress only perfusion study. The study is non-gated. The study was not complet ed due to patient's laboratory abnormalities of severe anemia. 2. Baseline resting perfusion is within normal limits. Recommendations Recommend completion of stress testing after appropriate evaluation of other underlying medical issue s. Signed by : Odilon Santos, Electronically Approved : 10/11/2019 11:23:58
--- NOTE | 2019-10-11 11:30 | NUR ---
Normal saline 250ml bolus completed, patient still complains of being tired and fatigued. Blood pressure 105/52. Patient advised to make appt with Dr. Maddox then reschedule cardiac stress test after appt with Dr. Maddox. Patient verbalized understanding.
== END | disposition home or self-care (01) ==
LOC: NM 08:02
PROVIDERS: ATTEND Internal Medicine Cardiovascular Disease
DX: R06.09 Other forms of dyspnea (principal)
CPT/HCPCS: 78451; A9500; J7050; J7030

== ENCOUNTER → 2020-02-20 | Outpatient (CLI) | payer BC ==
[~2020-02-20] MED LIST changes: -IV NORMAL SALINE 250ML 250 ML IV ONE; -REGADENOSON 0.4 MG/5 ML DISP.SYRIN. IV ONE
[2020-02-20] MEDS: REGADENOSON 0.4 MG/5 ML DISP.SYRIN. IV ONE (09:33)
--- NOTE | 2020-02-20 18:44 | RAD ---
MR#: [id number] Date of Study: 02/20/2020 Ordering Physician: PANCHITO KATZ Referring Physician: LOGAN BRICENO Tech: RT Dmitry (R) (N) APPROVED REPORT Test Type: Pharmacological Stress Nurse/Tech: SANIA URRUTIA Test Indications: DYSPNEA ON EXERTION Cardiac History: HTN, SEE EMR Medications: SEE EMR Medical History: SEE EMR Resting ECG: SR Resting Heart Rate: 85 bpm Resting Blood Pressure: 121/85mmHg Pretest Chest Pain: No chest pain Nurse/Tech Notes S1S2, LUNGS CTA, CHRONIC COUGH, VSS, DENIED SOA OR CP. Consent: The procedure was explained to the patient in lay terms. Informed consent was witnessed. Kameron eout was entered into [email or web address]. History and Stress Test performed by NELI Leiva Pharm. Details Pharmacologic stress testing was performed using 0.4mg per 5ml of regadenoson given intravenously ove r 7-10 seconds. Stress Symptoms PT C/O OF SLIGHT SHORTNESS OF BREATH AND NAUSEA BRIEFLY. VSS. TOLERATED PROCEDURE WELL OTHERWISE. POST EXERCISE Reason for Termination: Infusion complete Max HR: 110 bpm Max Blood Pressure: 128/73mmHg Blood Pressure response to exercise: Normal blood pressure response during stress. Heart Rate response to exercise: NORMAL HEAR RATE RESPONSE DURING STRESS. Chest Pain: No. Arrhythmia: No. ST Change: No. INTERPRETATION Stress EKG Conclusion: No evidence of stress induced EKG changes. Imaging Protocol IMAGE PROTOCOL: Rest Tc-99m/stress Tc-99m 1 day Rest: Stress: Viability: Radiopharm.Tc99m KtylecftcAj09f Sestamibi Dose10.5mCi 32.8mCi Duration 15min. 15min. Img Date 02/20/2020 02/20/2020 Inj-Img [id number]. 60min. Rest Admin Site:IV - Left AntecubitalAdministrator:RT Dmitry (R)(N) Stress Admin Site: IV - Left AntecubitalAdministrator: NELI Leiva STRESS DATA End Diast. Vol.84.0mlAv. Heart Rate91.0bpm End Syst. Vol.24.0mlCO Index BSA0.0L/min Myocardial Jqoe118.0gEject. Odyrcnkq93.0% Stress Rates Pk. Fill Rate5.22EDV/secLVtime Pk. Fill 185.74msec Pk. Empty Rate5.30ESV/secLVtime Pk. Eject92.96msec 1/3 Pk. Fill1.18EDV/sec Stress Scores Regional WT0.00Summed WT1.00 Regional WM0.00Summed WM0.00 The rest and stress images show normal perfusion, normal contraction and thickening. LV Perf. Quant 17 Seg. SSS5.00 17 Seg. SRS1.00 17 Seg. SDS4.00 Stress Defect Extent (% LAD)5.60Rest Defect Extent (% LAD)0.00Rev. Defect Extent (% LAD)0.00 Stress Defect Extent (% LCX) 7.50Rest Defect Extent (% LCX)0.00Rev. Defect Extent (% LCX)3.80 Stress Defect Extent (% RCA)5.60Rest Defect Extent (% RCA)0.00Rev. Defect Extent (% RCA)5.60 Stress Defect Extent (% ADELE)9.80Rest Defect Extent (% ADELE)0.00Rev. Defect Extent (% ADELE)5.20 Other Information Quality:Average Risk Assessment: Low Risk Conclusion 1. No evidence of EKG changes with stress testing. 2. Normal perfusion at stress/rest. 3. Low risk study. 4. EF > 60%. Signed by : Odilon Santos, Electronically Approved : 02/20/2020 18:43:36
== END ==
LOC: NM 07:39
PROVIDERS: ATTEND Internal Medicine Cardiovascular Disease
DX: R06.09 Other forms of dyspnea (principal)
CPT/HCPCS: 78452; 93017; A9500; J2785

== ENCOUNTER → 2020-06-03 | Outpatient (CLI) | payer BC ==
[~2020-06-03] MED LIST changes: -LISI-338 PO; +LISI-517 PO; +LISI10TA16 PO; -LISI10TA2 PO
--- NOTE | 2020-06-03 14:55 | KCIC ---
EXAM: 3 Views Right Shoulder DATE: 06/03/2020 1:17 PM INDICATION: Reason: right shoulder pain,weakness, lrom x5 months, no known injury / Spl. Instructions : / History: COMPARISON: No Prior FINDINGS: There is no evidence for acute fracture or dislocation. Trace AC joint offset without coracoclavicula r widening, age-indeterminate low-grade AC separation. Humeral head is not high riding. IMPRESSION: 1. Trace AC joint offset without coracoclavicular widening, age-indeterminate low-grade AC separatio n. 2. No acute fracture or dislocation. Electronically signed by: John Gerardo MD (06/03/2020 2:53 PM) [id number]
== END ==
LOC: KCIC 13:14
PROVIDERS: ATTEND Family Medicine
DX: M25.511 Pain in right shoulder (principal)
CPT/HCPCS: 73030

== ENCOUNTER → 2020-07-11 | Outpatient (CLI) | payer BC ==
--- NOTE | 2020-07-11 17:12 | KCIC ---
Examination: MRI of the right shoulder without contrast HISTORY: History of right shoulder pain for 6 months, fall COMPARISON: None. TECHNIQUE: Multiplanar, Multisequence MR imaging of the right shoulder performed without contrast FINDINGS: The long head of the biceps tendon within the bicipital groove. The attachment of the long head the b iceps tendon to the superior labral anchor grossly appears intact. The attachment of the subscapulari s tendon grossly appears intact. Mild increased T2 signal identified in the supraspinatus, infraspina tus tendon likely tendinosis. There is minimal increased T2 signal identified in the inferior fibers of the supraspinatus tendon measuring 4 mm likely small undersurface tear. The visualized labrum grossly appears unremarkable. The muscle bulk grossly appears unremarkable. Fat is present within the rotator interval. The acromion is type II. Mild degenerative changes acromioclavicular joint, glenohumeral degenerative joint. IMPRESSION: 1. Minimal increased T2 signal identified in the inferior fibers of the supraspinatus tendon measurin g 4 mm likely small undersurface tear. 2. Mild rotator cuff tendinosis. Electronically signed by: Abad Cool MD (07/11/2020 5:09 PM) [id number]
== END ==
LOC: KCIC MRI 09:23
PROVIDERS: ATTEND Orthopaedic Surgery
DX: M19.011 Primary osteoarthritis, right shoulder (principal); M75.101 Unspecified rotator cuff tear or rupture of right shoulder, not specified as traumatic
CPT/HCPCS: 73221

== ENCOUNTER → 2020-09-19 | Outpatient (CLI) | payer BC ==
[~2020-09-19] MED LIST changes: +MIRT-7 PO; -MIRT15TA3 PO
--- NOTE | 2020-09-20 11:39 | CARD ---
MR#: [id number] Date of Study: 09/19/2020 Ordering Physician: PANCHITO KATZ, Referring Physician: Min BRICENO: Abe Ibarra [facility] APPROVED REPORT EXAM: Two-dimensional and M-mode echocardiogram with Doppler and color Doppler. Other Information Quality : AverageHR: 97bpm Rhythm : NSR INDICATION Arrhythmia 2D DIMENSIONS Left Atrium(2D)3.5 (1.6-4.0cm)IVSd1.0 (0.7-1.1cm) Aortic Root(2D)3.4 (2.0-3.7cm)LVDd4.8 (3.9-5.9cm) LVOT Diameter1.9 (1.8-2.4cm)PWd1.0 (0.7-1.1cm) LVDs2.9 (2.5-4.0cm)FS (%) 39.8 % SV76.1 ml Aortic Valve AoV Peak Huseyin.131.4cm/sAoV VTI19.9cm AO Peak GR.6.9mmHgLVOT Peak Huseyin.86.5cm/s LVOT VTI 15.49cmAO Mean GR.4mmHg TAMIKA (VMAX)1.10eg3KAW (VTI)2.23cm2 Mitral Valve MV E Tsixgutb53.4cm/sMV DECEL CAPC241dy MV A Dmqkdtwn07.3cm/sMV [id number] E/A Ratio0.6MVA (PHT)4.04cm2 TDI E/Lateral E'9.1E/Medial E'7.4 Pulmonary Valve PV Peak Mtdcwnrw764.2cm/sPV Peak Grad.4mmHg Tricuspid Valve TR P. Ufwuzgzl776hz/sTR Peak Gr.16mmHg Pulmonary Vein S1 Erxpcxfw47.4cm/sD2 Oythllgc71.7cm/s LEFT VENTRICLE The left ventricle is normal size. There is normal left ventricular wall thickness. The left ventricu lar systolic function is normal. Left ventricular ejection fraction is 55 to 60%. There is normal LV segmental wall motion. Transmitral Doppler flow pattern is Grade I-abnormal relaxation pattern. No l eft ventricle thrombus noted on this study. There is no ventricular septal defect visualized. There i s no left ventricular aneurysm. There is no mass noted in the left ventricle. RIGHT VENTRICLE The right ventricle is normal size. There is normal right ventricular wall thickness. The right ventr icular systolic function is normal. ATRIA The left atrium size is normal. The right atrium size is normal. The interatrial septum is intact wit h no evidence for an atrial septal defect or patent foramen ovale as noted on 2-D or Doppler imaging. AORTIC VALVE The aortic valve is normal in structure and function. Doppler and Color Flow revealed no significant aortic regurgitation. There is no significant aortic valvular stenosis. There is no aortic valvular v egetation. MITRAL VALVE The mitral valve is normal in structure and function. There is no evidence of mitral valve prolapse. There is no mitral valve stenosis. Doppler and Color Flow revealed no mitral valve regurgitation note d. TRICUSPID VALVE The tricuspid valve is normal in structure and function. Doppler and Color Flow revealed trace tricus pid regurgitation. There is no tricuspid valve prolapse or vegetation. There is no tricuspid valve st enosis. PULMONIC VALVE The pulmonary valve is normal in structure and function. Doppler and Color Flow revealed no pulmonic valvular regurgitation. There is no pulmonic valvular stenosis. GREAT VESSELS The aortic root is normal in size. The ascending aorta is normal in size. The pulmonary artery is nor mal. The IVC is normal in size and collapses >50% with inspiration. PERICARDIAL EFFUSION There is no pleural effusion. There is no evidence of significant pericardial effusion. Critical Notification Critical Value: No <Conclusion> The left ventricle is normal size. The left ventricular systolic function is normal. Left ventricular ejection fraction is 55 to 60%. There is normal LV segmental wall motion. Doppler and Color Flow revealed no significant aortic regurgitation. There is no significant aortic valvular stenosis. Doppler and Color Flow revealed no mitral valve regurgitation noted. Doppler and Color Flow revealed trace tricuspid regurgitation. Signed by : Anthony Mckinley MD Electronically Approved : 09/20/2020 11:39:09
== END ==
LOC: ECHO 12:47
PROVIDERS: ATTEND Internal Medicine Cardiovascular Disease
DX: R00.0 Tachycardia, unspecified (principal)
CPT/HCPCS: 93306

== ENCOUNTER → 2020-11-14 | Outpatient (CLI) | payer BC ==
--- NOTE | 2020-11-14 15:37 | KCIC ---
STUDY: MRI of the left knee without contrast INDICATION: Left knee pain. COMPARISON: Left knee radiographs 11/11/2020. TECHNIQUE: Multiplanar MR imaging of the left knee performed without the use of intravenous or intra- articular contrast. FINDINGS: Menisci: Full-thickness or near full-thickness tear at the medial meniscus posterior root insertion. Borderline extrusion of the medial meniscal body from the joint line. Minimal degenerative heterogene ity of the articular surfaces and free edge of the medial meniscal body. No discrete tear of the late ral meniscus. Cruciate ligaments: Intact. Collateral ligaments: Intact. Tendons: No tear or significant tendinosis. Cartilage: Patellofemoral: Partial thickness fissure/delamination at the lateral aspect of the patellar median r idge. Adjacent high-grade partial-thickness chondral loss at the median ridge. Hypointense partial th ickness fissure at the upper trochlear groove. Partial thickness chondrosis at several additional loc ations. Lateral compartment: No high-grade or full-thickness defect. Medial compartment: Partial thickness chondrosis mainly at the weightbearing aspect of the medial fem oral condyle and tibial plateau. This is highest grade at the periphery of the medial tibial plateau with mild associated subchondral marrow edema. Bones: Small osteophytes. Degenerative marrow signal at a few locations. No acute abnormality. Miscellaneous: Small knee joint effusion. Mild scattered soft tissue edema. IMPRESSION: 1. Full-thickness or near full-thickness tear at the medial meniscus posterior root insertion with a ssociated borderline extrusion of the meniscus from the joint line. The lateral meniscus is intact as are the cruciate and collateral ligaments. 2. Mild/moderate chondrosis, as above, primarily at the patellofemoral and medial femorotibial von rtments. Small knee joint effusion. Electronically signed by: RENETTA TAY MD (11/14/2020 3:35 PM) [id number]
== END ==
LOC: KCIC MRI 13:05
PROVIDERS: ATTEND Orthopaedic Surgery
DX: M25.462 Effusion, left knee (principal); M25.762 Osteophyte, left knee; M25.562 Pain in left knee
CPT/HCPCS: 73721